=== PATIENT | female | born 1990 | race African-American/Black ===

== ENCOUNTER 2017-04-17 12:18 | Inpatient (IN) | payer SELFPAY ==
[~2017-04-17] VITALS: Ht 160 cm; Wt 98.4 kg
[2017-04-17 13:27] LABS: Basophils # (auto) 0.1 uL; Basophils % (auto) 0.9 % (0.0-2.0); Eosinophils # (auto) 0.4 uL; Eosinophils % (auto) 3.6 % (0.0-7.0); Hematocrit 40.3 % (36.0-46.0); Hemoglobin 13.3 g/dL (12.2-16.2); Lymphocytes # (auto) 2.7 uL; Lymphocytes % (auto) 27.2 % (10.0-50.0); Mean Corpuscular Hemoglobin 29.7 pg (28.0-32.0); Monocytes # (auto) 0.6 uL; Monocytes % (auto) 6.4 % (0.0-12.0); Neutrophils # (auto) 6.1 uL; Neutrophils % (auto) 61.9 % (37.0-80.0); Nucleated Red Blood Cells % 0.8 %; Platelet Count (auto) 327 10^3/uL (140-450); Red Blood Cells 4.48 10^6/uL (4.0-5.20); Red Cell Distribution Width 17.4 % (11.8-14.3); White Blood Cell 9.9 10^3/uL (4.4-10.8)
[2017-04-17 13:53] LABS: Albumin 3.8 g/dL (3.4-5.0); BUN/Creatinine Ratio 11.3; Bilirubin, Total 0.5 mg/dL (0.2-1.0); Calcium 9.4 mg/dL (8.5-10.1); Total Protein 8.5 g/dL (6.4-8.2)
[2017-04-17 13:57] LABS: Potassium 2.8 mmol/L (3.5-5.1)
[2017-04-17 15:08] LABS: Magnesium 2.2 mg/dL (1.6-2.6)
[2017-04-17] MEDS ORDERED: SODIUM CHLORIDE 0.9% 1,000 ML IVB ONE (15:19)
[2017-04-17] MEDS ORDERED: cloNIDine HCL 0.1 MG TAB PO ONE (15:30)
[2017-04-17] MEDS ORDERED: POTASSIUM CHL 20 Meq TABLET PO ONE (15:30)
[2017-04-17] MEDS ORDERED: ONDANSETRON HCL 4 MG/2 ML VIAL IV ONE (16:00)
[2017-04-17] MEDS ORDERED: MORPHINE SULFATE 10 MG/ML INJ 1ML SDV IV ONE (16:00)
[2017-04-17] MEDS ORDERED: METOPROLOL TARTRATE 50 MG TAB PO ONE (16:45)
[2017-04-17] MEDS ORDERED: HCTZ 25 MG TAB PO ONE (16:45)
[2017-04-17] MEDS ORDERED: MORPHINE SULFATE 10 MG/ML INJ 1ML SDV IV PRN (16:45)
[2017-04-17] MEDS ORDERED: ALPRAZolam 0.25 MG TAB PO PRN (16:45)
[2017-04-17] MEDS ORDERED: cloNIDine HCL 0.1 MG TAB PO PRN (16:45)
[2017-04-17] MEDS ORDERED: ASPirin 81 mg TAB PO ONE (16:45)
[2017-04-17] MEDS ORDERED: HYDROcodone-ACET 5/325MG TAB PO ONE (23:15)
[2017-04-17] MEDS: cloNIDine HCL 0.1 MG TAB PO SCH (23:32)
[2017-04-17] MEDS: METOPROLOL TARTRATE 50 MG TAB PO SCH (23:33)
[2017-04-18] VITALS (7 sets, daily range): BP systolic 108–145; BP diastolic 72–90
[2017-04-18] MEDS: METOPROLOL TARTRATE 50 MG TAB PO SCH ×3 (01:30→22:23)
[2017-04-18 07:29] LABS: Cholesterol 178 mg/dL (< 200); HDL Cholesterol 29 mg/dL (40-59); LDL Cholesterol 136 mg/dL (< 100); Triglycerides 95 mg/dL (< 150)
[2017-04-18 07:43] LABS: BUN/Creatinine Ratio 14.3; Calcium 8.4 mg/dL (8.5-10.1); Potassium 3.7 mmol/L (3.5-5.1)
[2017-04-18] MEDS: cloNIDine HCL 0.1 MG TAB PO SCH ×2 (10:00→22:22)
[2017-04-18] MEDS ORDERED: HCTZ 25 MG TAB PO SCH (10:00)
[2017-04-18] MEDS: ASPirin 81 mg TAB PO SCH (10:56)
[2017-04-18] MEDS ORDERED: traMADol HCL 50 MG TAB PO PRN (11:45)
[2017-04-18] MEDS ORDERED: KETOROLAC TROMETH 30 MG/ML 1ML VIAL IV ONE (11:45)
[2017-04-18 16:34] LABS: Urine Bacteria FEW /hpf (None Seen); Urine Blood TRACE /uL (Negative); Urine Specific Gravity 1.014 (1.001-1.035); Urine WBC 1 /hpf (0 - 5)
[2017-04-18] MEDS ORDERED: IOHEXOL 350 MG/ML 100ML IJ ONE (16:48)
[2017-04-18 16:49] LABS: Alcohol, Urine < 3.0 mg/dL (0-5); Amphetamine Screen, Urine NEGATIVE (NEGATIVE); Barbiturate Scree,Urine NEGATIVE (NEGATIVE); Benzodiazephine Screen, Urine NEGATIVE (NEGATIVE); Cannabinoid Screen, Urine POSITIVE (NEGATIVE); Cocaine Screen, Urine NEGATIVE (NEGATIVE); Opiate Scree,Urine NEGATIVE (NEGATIVE); Phencyclidine Screen, Urine NEGATIVE (NEGATIVE)
[2017-04-18] MEDS: NITROGLYCERIN 0.4 MG SL TAB SL PRN ×3 (17:00→17:15)
[2017-04-18] MEDS ORDERED: HYDROmorphone HCL 2 MG/ML VL IV PRN (17:30)
[2017-04-18] MEDS ORDERED: ONDANSETRON HCL 4 MG/2 ML VIAL IV PRN (19:45)
[2017-04-19 05:26] VITALS: BP 131/89
[2017-04-19 07:01] LABS: Calcium 9.1 mg/dL (8.5-10.1); Potassium 3.7 mmol/L (3.5-5.1)
[2017-04-19 09:00] VITALS: BP 135/89
[2017-04-19] MEDS ORDERED: TRIAMTERENE/HCTZ 75/50MG TABLET PO SCH (10:00)
[2017-04-19] MEDS: METOPROLOL TARTRATE 50 MG TAB PO SCH (10:14)
[2017-04-19] MEDS: cloNIDine HCL 0.1 MG TAB PO SCH (10:16)
[2017-04-19] MEDS: ASPirin 81 mg TAB PO SCH (10:16)
[2017-04-19 13:00] VITALS: BP 99/49
== END 2017-04-19 17:15 | disposition home or self-care (01) | DRG 305 ==
LOC: ER 12:18 → TELE 12:19 → TELE-WESTW 04-18 02:10
PROVIDERS: ADMIT Internal Medicine; ATTEND Internal Medicine
DX: I10 Essential (primary) hypertension (principal); L40.50 Arthropathic psoriasis, unspecified; G44.209 Tension-type headache, unspecified, not intractable; E66.9 Obesity, unspecified; E87.6 Hypokalemia; F17.210 Nicotine dependence, cigarettes, uncomplicated; F12.90 Cannabis use, unspecified, uncomplicated; Z68.38 Body mass index [BMI] 38.0-38.9, adult; Z79.899 Other long term (current) drug therapy
CPT/HCPCS: 36415; 70450; 71020; 80048; 80053; 80061; 80307; 81001; 81025; 82088; 82962; 83735; 84244; 84443; 84484; 85025; 93005; 93306; 94761; 96361; 96374; 96375; 96376; J1885; J2405

== ENCOUNTER 2018-07-09 09:59 | Emergency (ER) | payer SELFPAY ==
[~2018-07-09] VITALS: Ht 154.9 cm; Wt 94.8 kg
[2018-07-09 10:09] VITALS: BP 161/101
[2018-07-09 10:37] LABS: Urine Bacteria NONE SEEN /hpf (None Seen); Urine Blood 2+ /uL (Negative); Urine Budding Yeast OCCASIONAL /hpf (None Seen); Urine Hyaline Cast FEW /lpf (0 - 2); Urine Specific Gravity 1.036 (1.001-1.035); Urine WBC 1 /hpf (0 - 5)
[2018-07-09 12:15] LABS: Basophils # (auto) 0.1 uL; Basophils % (auto) 1.1 % (0.0-2.0); Eosinophils # (auto) 0.4 uL; Eosinophils % (auto) 5.3 % (0.0-7.0); Hematocrit 39.9 % (36.0-46.0); Hemoglobin 13.1 g/dL (12.2-16.2); Lymphocytes # (auto) 1.5 uL; Lymphocytes % (auto) 20.2 % (10.0-50.0); Mean Corpuscular Hemoglobin 29.7 pg (28.0-32.0); Mean Corpuscular Hgb Conc. 32.8 g/dL (32.0-36.0); Mean Corpuscular Volume 90.8 fL (80.0-100.0); Monocytes # (auto) 0.5 uL; Monocytes % (auto) 6.9 % (0.0-12.0); Neutrophils # (auto) 4.8 uL; Neutrophils % (auto) 66.5 % (37.0-80.0); Nucleated Red Blood Cells % 0.3 %; Platelet Count (auto) 270 10^3/uL (140-450); Red Cell Distribution Width 15.2 % (11.8-14.3); White Blood Cell 7.2 10^3/uL (4.4-10.8)
[2018-07-09 12:21] LABS: INR 0.92 (0.9-1.15); Partial Thromboplastin Time 27.2 sec (23.78-33.04); Prothrombin Time 9.9 sec (9.27-12.13)
[2018-07-09 12:38] LABS: Albumin 3.8 g/dL (3.4-5.0); BUN/Creatinine Ratio 8.4; Calcium 8.6 mg/dL (8.5-10.1); Potassium 3.5 mmol/L (3.5-5.1)
[2018-07-09 13:54] LABS: Bilirubin, Total 0.2 mg/dL (0.2-1.0); Total Protein 7.7 g/dL (6.4-8.2)
[2018-07-09] MEDS ORDERED: SODIUM CHLORIDE 0.9% 1,000 ML IV ONE (15:45)
== END 2018-07-09 16:39 | disposition left against medical advice (07) ==
LOC: ER 09:59
DX: N92.0 Excessive and frequent menstruation with regular cycle (principal); E11.9 Type 2 diabetes mellitus without complications; E87.1 Hypo-osmolality and hyponatremia; F17.210 Nicotine dependence, cigarettes, uncomplicated; F12.10 Cannabis abuse, uncomplicated; Z53.29 Procedure and treatment not carried out because of patient's decision for other reasons
CPT/HCPCS: 36415; 76830; 76856; 80053; 81001; 81025; 82962; 84702; 85025; 85610; 85730

== ENCOUNTER 2021-01-20 21:09 | Emergency (ER) | payer MEDICAID, OTHER ==
[~2021-01-20] VITALS: Ht 154.9 cm; Wt 54.4 kg
[2021-01-20 22:51] LABS: Basophils # (auto) 0 10 ^3/uL (0-0.2); Eosinophils # (auto) 0 10 ^3/uL (0-0.8); Eosinophils % (auto) 0.4 % (0.0-7.0); Hemoglobin 12.4 g/dL (12.2-16.2); Lymphocytes # (auto) 1.6 10 ^3/uL (0.4-5.4); Lymphocytes % (auto) 37.9 % (10.0-50.0); Mean Corpuscular Hemoglobin 27.3 pg (28.0-32.0); Mean Corpuscular Hgb Conc. 32.6 g/dL (32.0-36.0); Mean Corpuscular Volume 83.6 fL (80.0-100.0); Monocytes # (auto) 0.4 10 ^3/uL (0-1.3); Monocytes % (auto) 8.8 % (0.0-12.0); Neutrophils # (auto) 2.1 10 ^3/uL (1.6-8.6); Neutrophils % (auto) 51.9 % (37.0-80.0); Nucleated Red Blood Cells % 0.1 %; Red Blood Cells 4.54 10^6/uL (4.0-5.20); Red Cell Distribution Width 18.4 % (11.8-14.3); White Blood Cell 4.1 10^3/uL (4.4-10.8)
[2021-01-20 23:09] LABS: Albumin 3.3 g/dL (3.4-5.0); BUN/Creatinine Ratio 8.7; Calcium 8.9 mg/dL (8.5-10.1); Magnesium 1.9 mg/dL (1.6-2.6); Potassium 3.1 mmol/L (3.5-5.1)
[2021-01-20 23:12] LABS: Bilirubin, Total 0.2 mg/dL (0.2-1.0); Total Protein 8.2 g/dL (6.4-8.2)
[2021-01-21 04:04] LABS: Urine Bacteria NONE SEEN /hpf (None Seen); Urine Blood Negative /uL (Negative); Urine Hyaline Cast MOD /lpf (0 - 2); Urine Mucus FEW (None Seen); Urine Specific Gravity 1.029 (1.001-1.035); Urine WBC 7 /hpf (0 - 5)
[2021-01-21] MEDS ORDERED: cefTRIAXone SOD 1,000 MG VL IM ONE (05:00)
[2021-01-21] MEDS ORDERED: POTASSIUM CHL 20 Meq TABLET PO ONE (05:00)
[2021-01-21 05:07] VITALS: BP 143/97
[2021-01-21] MEDS ORDERED: methylPREDNISolone SOD SUCC 125 MG/2 ML VL IM ONE (05:30)
== END 2021-01-21 07:39 | disposition home or self-care (01) ==
LOC: ER 21:09
DX: J06.9 Acute upper respiratory infection, unspecified (principal); N39.0 Urinary tract infection, site not specified; E86.0 Dehydration; I10 Essential (primary) hypertension; F17.210 Nicotine dependence, cigarettes, uncomplicated; Z20.822 Contact with and (suspected) exposure to COVID-19
CPT/HCPCS: 36415; 71045; 80053; 81001; 83690; 83735; 85025; 87426; 96372; 99284; C9803; J0696; J2930; U0003

== ENCOUNTER 2023-10-12 03:39 | Inpatient (IN) | payer MEDICAID ==
[2023-10-12] VITALS (20 sets, daily range): BP systolic 127–164; BP diastolic 78–104; PULSE 75–98; RESP 10–33; TEMP 97.8–98.7; O2SAT 93–100
[~2023-10-12] VITALS: Ht 30.5 cm; Wt 0.5 kg
[2023-10-12] MEDS ORDERED: MORPHINE SULFATE 4 MG/ML SYR/VIAL IV PRN (09:15)
[2023-10-12] MEDS ORDERED: NITROGLYCERIN 0.4 MG SL TAB SL PRN (09:15)
[2023-10-12] MEDS: ASPirin 81 mg TAB PO SCH (10:00)
[2023-10-12 10:24] LABS: Basophils # (auto) 0.1 10 ^3/uL (0-0.2); Basophils % (auto) 1.5 % (0.0-2.0); Eosinophils # (auto) 0.1 10 ^3/uL (0-0.8); Eosinophils % (auto) 1.3 % (0.0-7.0); Hematocrit 34.1 % (36.0-46.0); Hemoglobin 10.7 g/dL (12.2-16.2); Lymphocytes # (auto) 2.7 10 ^3/uL (0.4-5.4); Lymphocytes % (auto) 28.3 % (10.0-50.0); Mean Corpuscular Hemoglobin 25.8 pg (28.0-32.0); Mean Corpuscular Hgb Conc. 31.5 g/dL (32.0-36.0); Mean Corpuscular Volume 81.9 fL (80.0-100.0); Monocytes # (auto) 0.4 10 ^3/uL (0-1.3); Monocytes % (auto) 4.4 % (0.0-12.0); Neutrophils # (auto) 6.2 10 ^3/uL (1.6-8.6); Neutrophils % (auto) 64.5 % (37.0-80.0); Nucleated Red Blood Cells % 0.1 %; Red Blood Cells 4.16 10^6/uL (4.0-5.20); Red Cell Distribution Width 19.5 % (11.8-14.3); White Blood Cell 9.5 10^3/uL (4.4-10.8)
[2023-10-12 10:37] LABS: Chloride 106 mmol/L (98-107); Potassium 3.5 mmol/L (3.5-5.1); Sodium 137 mmol/L (136-145)
[2023-10-12 10:38] LABS: Anion Gap 7 (5-15); Carbon Dioxide 24 mmol/L (20-30)
[2023-10-12 10:39] LABS: Calcium 9.5 mg/dL (8.5-10.1); INR 1.06 (0.9-1.15); Prothrombin Time 11.2 sec (9.3-11.8)
[2023-10-12 10:44] LABS: Blood Urea Nitrogen 12 mg/dL (9-23); Glucose 174 mg/dL (74-106)
[2023-10-12] MEDS: LISINOPRIL 20 MG TAB PO SCH (11:43)
[2023-10-12] MEDS: ANGIOMAX 250 MG VIAL IV ONE (13:04)
[2023-10-12] MEDS: VERAPAMIL 2.5MG/ML INJ 2ML VIAL IV ONE (13:04)
[2023-10-12] MEDS: HEPARIN SODIUM (PORCINE) 5000 UNITS/ML 1ML VIAL ONE (13:04)
[2023-10-12] MEDS: fentaNYL CITRATE 100 MCG/2 ML VL ONE (13:04)
[2023-10-12] MEDS: MIDAZOLAM HCL 2MG/2ML 2ml VIAL (1mg/ml) ONE (13:05)
[2023-10-12] MEDS: SODIUM CHL 0.9% 0 ML ONE (13:05)
[2023-10-12] MEDS: LIDOCAINE 2%HCL (LOCAL ANESTH.) INJ 20ML MDV ONE (13:05)
[2023-10-12] MEDS: IODIXANOL 320MG/ML 100ML BTL IV ONE ×2 (13:05→13:23)
[2023-10-12] MEDS: LABETALOL HCL 200 MG TAB PO SCH (15:35)
[2023-10-12] MEDS: ALBUTEROL SULF 2.5 MG/0.5ML(0.5%) NEB SOLN NEB SCH (18:41)
[2023-10-12] MEDS: SACUBITRIL-VALSARTAN 24mg/26mg TAB PO SCH (20:59)
[2023-10-12] MEDS: MELATONIN 5 MG TAB PO PRN (23:39)
[2023-10-12] MEDS: hydrALAZINE HCL 20 MG/ML VL IV PRN (23:44)
[2023-10-12] MEDS: ACETAMINOPHEN 325 MG TAB PO PRN (23:45)
[2023-10-13] VITALS (9 sets, daily range): BP systolic 112–161; BP diastolic 64–92; PULSE 75–90; RESP 16–20; TEMP 98.1–98.7; O2SAT 96–100
[2023-10-13] MEDS: amLODIPine BESYLATE 5 MG TAB PO SCH (09:18)
[2023-10-13 11:07] LABS: Basophils # (auto) 0.1 10 ^3/uL (0-0.2); Eosinophils # (auto) 0.2 10 ^3/uL (0-0.8); Eosinophils % (auto) 3.5 % (0.0-7.0); Hemoglobin 9.4 g/dL (12.2-16.2); Monocytes # (auto) 0.4 10 ^3/uL (0-1.3); Neutrophils # (auto) 4.3 10 ^3/uL (1.6-8.6)
[2023-10-13 11:11] LABS: Basophils % (auto) 1.2 % (0.0-2.0); Hematocrit 30.1 % (36.0-46.0); Lymphocytes # (auto) 1.5 10 ^3/uL (0.4-5.4); Lymphocytes % (auto) 22.5 % (10.0-50.0); Mean Corpuscular Hemoglobin 25.9 pg (28.0-32.0); Mean Corpuscular Hgb Conc. 31.2 g/dL (32.0-36.0); Mean Corpuscular Volume 82.8 fL (80.0-100.0); Monocytes % (auto) 6.8 % (0.0-12.0); Red Blood Cells 3.63 10^6/uL (4.0-5.20); White Blood Cell 6.6 10^3/uL (4.4-10.8)
[2023-10-13 11:33] LABS: Calcium 9.3 mg/dL (8.5-10.1); Chloride 106 mmol/L (98-107); Potassium 3.5 mmol/L (3.5-5.1); Sodium 136 mmol/L (136-145)
[2023-10-13 11:34] LABS: Anion Gap 8 (5-15); Carbon Dioxide 22 mmol/L (20-30)
[2023-10-13 11:39] LABS: BUN/Creatinine Ratio 8.2 (10.0-20.0); Blood Urea Nitrogen 10 mg/dL (9-23); Glucose 256 mg/dL (74-106)
[2023-10-13] MEDS ORDERED: ATOR-507 PO (14:31)
[2023-10-13] MEDS ORDERED: LABE200T10 PO (14:31)
[2023-10-13] MEDS ORDERED: SACU1TAB PO (14:31)
[2023-10-13] MEDS ORDERED: AML5T PO (14:31)
[2023-10-13] MEDS ORDERED: ASPI-325 PO (14:31)
== END 2023-10-13 17:30 | disposition home or self-care (01) | DRG 190 ==
LOC: DOU IN ICU 07:30 → TELE-WESTW 22:10
PROVIDERS: ADMIT Nurse Practitioner Family; ATTEND Nurse Practitioner Family
PROC: 4A023N7 Measurement of Cardiac Sampling and Pressure, Left Heart, Percutaneous Approach (ICD-10-PCS; principal; 2023-10-12)
PROC: B211YZZ Fluoroscopy of Multiple Coronary Arteries using Other Contrast (ICD-10-PCS; 2023-10-12)
DX: I21.4 Non-ST elevation (NSTEMI) myocardial infarction (principal); I11.0 Hypertensive heart disease with heart failure; I50.9 Heart failure, unspecified; E66.9 Obesity, unspecified; I25.10 Atherosclerotic heart disease of native coronary artery without angina pectoris; I34.0 Nonrheumatic mitral (valve) insufficiency; Z82.49 Family history of ischemic heart disease and other diseases of the circulatory system; Z79.4 Long term (current) use of insulin; Z68.1 Body mass index [BMI] 19.9 or less, adult
CPT/HCPCS: 36415; 80048; 84484; 84702; 85025; 85610; 86850; 86900; 86901; 87081; 93005; 93306; 93458; 94640; 99152; G0378; J2250; Q9967

== ENCOUNTER 2024-02-21 13:45 | Inpatient (IN) | payer MEDICAID ==
[~2024-02-21] VITALS: Ht 157.5 cm; Wt 88.8 kg
[~2024-02-21 13:45] MED LIST: AML5T PO; ASPI-325 PO; ATOR-507 PO; LABE200T10 PO; SACU1TAB PO
[2024-02-21 14:35] LABS: Basophils # (auto) 0.1 10 ^3/uL (0-0.2); Eosinophils # (auto) 0.3 10 ^3/uL (0-0.8); Hemoglobin 10.7 g/dL (12.2-16.2); Monocytes # (auto) 0.6 10 ^3/uL (0-1.3); Nucleated Red Blood Cells % 0.1 %; Red Cell Distribution Width 16.7 % (11.8-14.3)
[2024-02-21 14:37] LABS: Eosinophils % (auto) 3.3 % (0.0-7.0); Hematocrit 33.2 % (36.0-46.0); Lymphocytes # (auto) 1.9 10 ^3/uL (0.4-5.4); Lymphocytes % (auto) 19.7 % (10.0-50.0); Mean Corpuscular Hemoglobin 25.7 pg (28.0-32.0); Mean Corpuscular Hgb Conc. 32.3 g/dL (32.0-36.0); Mean Corpuscular Volume 79.4 fL (80.0-100.0); Neutrophils # (auto) 6.8 10 ^3/uL (1.6-8.6); Platelet Count (auto) 358 10^3/uL (140-450); Red Blood Cells 4.18 10^6/uL (4.0-5.20); White Blood Cell 9.8 10^3/uL (4.4-10.8)
[2024-02-21 14:50] LABS: Alanine Aminotransferase 14 U/L (7-40); Albumin 4.6 g/dL (3.2-4.8); Alkaline Phosphatase 77 U/L (46-116); Anion Gap 11 (5-15); Aspartate Aminotransferase 11 U/L (13-40); BUN/Creatinine Ratio 7.2 (10.0-20.0); Blood Urea Nitrogen 10 mg/dL (9-23); Calcium 9.9 mg/dL (8.7-10.4); Carbon Dioxide 25 mmol/L (20-30); Chloride 99 mmol/L (98-107); Glucose 321 mg/dL (74-106); Magnesium 1.5 mg/dL (1.6-2.6); Potassium 3.3 mmol/L (3.5-5.1); Sodium 135 mmol/L (136-145)
[2024-02-21 14:51] LABS: Bilirubin, Total 0.4 mg/dL (0.2-1.0); Total Protein 7.7 g/dL (5.7-8.2)
[2024-02-21] MEDS: hydrALAZINE HCL 10 MG TAB PO ONE (14:53)
[2024-02-21 15:13] LABS: INR 0.99 (0.9-1.15); Partial Thromboplastin Time 27.1 SEC (24.5-34.5); Prothrombin Time 10.5 sec (9.3-11.8)
[2024-02-21] MEDS: NITROGLYCERIN 2% OINT 1GM PKG TD ONE (16:45)
[2024-02-21] MEDS: LABETALOL HCL 20 MG/4 ML VL IV ONE ×2 (17:00→22:18)
[2024-02-21] MEDS: ASPirin 325 MG TAB PO ONE (17:15)
[2024-02-21] MEDS: HYDROcodone-ACET 5/325MG TAB PO ONE (17:44)
[2024-02-21 18:44] LABS: Cellular Cast FEW /hpf (0); Urine Bacteria FEW /hpf (None Seen); Urine Blood 1+ /uL (Negative); Urine Clarity Turbid (Clear); Urine Color Yellow (Yellow); Urine Hyaline Cast MOD /lpf (0 - 2); Urine Mucus FEW (None Seen); Urine Protein, UAD 2+ (Negative); Urine Specific Gravity 1.029 (1.001-1.035); Urine Urobilinogen Normal (Negative); Urine WBC <1 /hpf (0 - 5)
[2024-02-21 18:45] LABS: Amphetamine Screen, Urine Neg (NEGATIVE); Barbiturate Scree,Urine Neg (NEGATIVE); Benzodiazephine Screen, Urine Neg (NEGATIVE); Cannabinoid Screen, Urine Pos (NEGATIVE); Cocaine Screen, Urine Neg (NEGATIVE); Opiate Scree,Urine Neg (NEGATIVE); Phencyclidine Screen, Urine Neg (NEGATIVE)
[2024-02-21] MEDS: amLODIPine BESYLATE 5 MG TAB PO ONE (22:21)
[2024-02-21] MEDS ORDERED: NITROGLYCERIN 0.4 MG SL TAB SL PRN (22:45)
[2024-02-21] MEDS: SODIUM CHLORIDE 0.9% 1,000 ML IV SCH (22:51)
[2024-02-21] MEDS: POTASSIUM CHL 20 Meq TABLET PO ONE (22:51)
[2024-02-21] MEDS: ACETAMINOPHEN 325 MG TAB PO PRN (23:25)
[2024-02-21] MEDS: cloNIDine HCL 0.1 MG TAB PO PRN (23:47)
[2024-02-22] VITALS (9 sets, daily range): BP systolic 122–155; BP diastolic 79–101; PULSE 80–108; RESP 17–18; TEMP 98.3–99.3; O2SAT 96–99
[2024-02-22] MEDS: hydrALAZINE HCL 20 MG/ML VL IV PRN (00:14)
[2024-02-22] MEDS: MORPHINE SULFATE INJ 2 MG/ml SYRG IV PRN ×2 (00:19→02:16)
[2024-02-22] MEDS ORDERED: DEXTROSE (50%) 50ML SYRG IV PRN (01:30)
[2024-02-22] MEDS: ACCU-CHEK COMFORT CURVE STRIP VI SCH (05:00)
[2024-02-22] MEDS: InsuLIN REG 1unit/0.01ml Soln (100units/ml) SC SCH (05:02)
[2024-02-22] MEDS: MAGNESIUM SULFATE 1GM/100ML 100 ML IV ONE ×2 (09:01→12:26)
[2024-02-22] MEDS: METOPROLOL TARTRATE 50 MG TAB PO SCH (09:02)
[2024-02-22] MEDS: amLODIPine BESYLATE 5 MG TAB PO SCH (09:02)
[2024-02-22] MEDS: ASPirin 81 mg TAB PO SCH (09:03)
[2024-02-22 10:01] LABS: Basophils # (auto) 0.1 10 ^3/uL (0-0.2); Basophils % (auto) 0.9 % (0.0-2.0); Eosinophils # (auto) 0.3 10 ^3/uL (0-0.8); Eosinophils % (auto) 2.8 % (0.0-7.0); Hematocrit 28.1 % (36.0-46.0); Hemoglobin 9.1 g/dL (12.2-16.2); Lymphocytes # (auto) 1.3 10 ^3/uL (0.4-5.4); Lymphocytes % (auto) 12.7 % (10.0-50.0); Mean Corpuscular Hemoglobin 25.8 pg (28.0-32.0); Mean Corpuscular Hgb Conc. 32.5 g/dL (32.0-36.0); Mean Corpuscular Volume 79.5 fL (80.0-100.0); Monocytes % (auto) 9.5 % (0.0-12.0); Neutrophils # (auto) 7.8 10 ^3/uL (1.6-8.6); Neutrophils % (auto) 74.1 % (37.0-80.0); Platelet Count (auto) 288 10^3/uL (140-450); Red Blood Cells 3.53 10^6/uL (4.0-5.20); Red Cell Distribution Width 17.1 % (11.8-14.3); White Blood Cell 10.5 10^3/uL (4.4-10.8)
[2024-02-22 10:10] LABS: Alanine Aminotransferase 16 U/L (7-40); Alkaline Phosphatase 60 U/L (46-116); Anion Gap 8 (5-15); Aspartate Aminotransferase < 8 U/L (13-40); BUN/Creatinine Ratio 10.3 (10.0-20.0); Bilirubin, Total 0.3 mg/dL (0.2-1.0); Blood Urea Nitrogen 12 mg/dL (9-23); Calcium 9.1 mg/dL (8.7-10.4); Carbon Dioxide 25 mmol/L (20-30); Chloride 103 mmol/L (98-107); Glucose 272 mg/dL (74-106); Magnesium 1.7 mg/dL (1.6-2.6); Potassium 2.8 mmol/L (3.5-5.1); Sodium 136 mmol/L (136-145); Total Protein 6.7 g/dL (5.7-8.2)
[2024-02-22] MEDS ORDERED: METOPROLOL SUCCINATE XL 50 MG TAB PO ONE (10:45)
[2024-02-22] MEDS: ATORVASTATIN 20 MG TAB PO SCH (12:26)
[2024-02-22] MEDS: LISINOPRIL 20 MG TAB PO ONE (12:26)
[2024-02-22] MEDS: POTASSIUM CHL 20 Meq TABLET PO ONE (12:31)
[2024-02-22] MEDS: INSULIN LANTUS (GLARGINE) 1 /0.01ml (100units/ml) SC SCH (21:44)
[2024-02-22] MEDS ORDERED: ATORVASTATIN 20 MG TAB PO SCH (22:00)
[2024-02-23] VITALS (8 sets, daily range): BP systolic 115–156; BP diastolic 63–98; PULSE 84–106; RESP 17–18; TEMP 97.8–99.1; O2SAT 92–98
[2024-02-23] MEDS: ONDANSETRON HCL 4 MG/2 ML VIAL IV PRN (00:51)
[2024-02-23] MEDS: INSULIN LANTUS (GLARGINE) 1 /0.01ml (100units/ml) SC SCH (09:00)
[2024-02-23 10:12] LABS: Basophils # (auto) 0.1 10 ^3/uL (0-0.2); Hemoglobin 8.9 g/dL (12.2-16.2); Lymphocytes # (auto) 2.8 10 ^3/uL (0.4-5.4); Lymphocytes % (auto) 35.3 % (10.0-50.0); Nucleated Red Blood Cells % 0.1 %
[2024-02-23 10:14] LABS: Eosinophils # (auto) 0.2 10 ^3/uL (0-0.8); Eosinophils % (auto) 2.9 % (0.0-7.0); Hematocrit 28.5 % (36.0-46.0); Mean Corpuscular Hgb Conc. 31.1 g/dL (32.0-36.0); Mean Corpuscular Volume 80.5 fL (80.0-100.0); Monocytes # (auto) 0.5 10 ^3/uL (0-1.3); Monocytes % (auto) 6.1 % (0.0-12.0); Neutrophils # (auto) 4.3 10 ^3/uL (1.6-8.6); Neutrophils % (auto) 54.7 % (37.0-80.0); Platelet Count (auto) 310 10^3/uL (140-450); Red Blood Cells 3.54 10^6/uL (4.0-5.20); Red Cell Distribution Width 16.9 % (11.8-14.3); White Blood Cell 7.9 10^3/uL (4.4-10.8)
[2024-02-23 10:18] LABS: Chloride 104 mmol/L (98-107); Potassium 3.4 mmol/L (3.5-5.1); Sodium 136 mmol/L (136-145)
[2024-02-23 10:19] LABS: Anion Gap 12 (5-15); Calcium 9.2 mg/dL (8.7-10.4); Carbon Dioxide 20 mmol/L (20-30)
[2024-02-23 10:24] LABS: BUN/Creatinine Ratio 10.1 (10.0-20.0); Blood Urea Nitrogen 14 mg/dL (9-23); Glucose 263 mg/dL (74-106)
[2024-02-23] MEDS: LISINOPRIL 20 MG TAB PO SCH (10:45)
[2024-02-23] MEDS: EMPAGLIFLOZIN 10 MG TAB PO SCH (10:46)
[2024-02-23] MEDS: METOPROLOL SUCCINATE XL 50 MG TAB PO SCH (10:47)
[2024-02-23] MEDS: POTASSIUM CHL 20 Meq TABLET PO ONE (10:51)
[2024-02-23] MEDS: HYDROcodone-ACET 5/325MG TAB PO PRN (18:46)
[2024-02-24] MEDS: DOCUSATE SOD 100 MG CAP PO PRN (00:31)
[2024-02-24 01:00] VITALS: BP 157/84; PULSE 102; RESP 19; TEMP 98.3; O2SAT 99
[2024-02-24 05:00] VITALS: BP 162/90; PULSE 101; RESP 18; TEMP 98.3; O2SAT 98
[2024-02-24 08:00] VITALS: PULSE 94
[2024-02-24 08:10] VITALS: BP 134/84; PULSE 94; RESP 19; TEMP 98; O2SAT 96
[2024-02-24 11:31] LABS: Basophils # (auto) 0.1 10 ^3/uL (0-0.2); Basophils % (auto) 0.7 % (0.0-2.0); Eosinophils # (auto) 0.2 10 ^3/uL (0-0.8); Eosinophils % (auto) 1.6 % (0.0-7.0); Hemoglobin 9.4 g/dL (12.2-16.2); Lymphocytes # (auto) 2.6 10 ^3/uL (0.4-5.4); Lymphocytes % (auto) 24.7 % (10.0-50.0); Mean Corpuscular Hgb Conc. 32.5 g/dL (32.0-36.0); Monocytes # (auto) 0.7 10 ^3/uL (0-1.3); Neutrophils # (auto) 6.8 10 ^3/uL (1.6-8.6); Nucleated Red Blood Cells % 0.1 %; Platelet Count (auto) 317 10^3/uL (140-450); Red Blood Cells 3.63 10^6/uL (4.0-5.20); Red Cell Distribution Width 17.2 % (11.8-14.3); White Blood Cell 10.4 10^3/uL (4.4-10.8)
[2024-02-24 11:49] LABS: Alanine Aminotransferase 10 U/L (7-40); Alkaline Phosphatase 55 U/L (46-116); Anion Gap 12 (5-15); Aspartate Aminotransferase 9 U/L (13-40); BUN/Creatinine Ratio 12.9 (10.0-20.0); Blood Urea Nitrogen 17 mg/dL (9-23); Calcium 9.4 mg/dL (8.7-10.4); Carbon Dioxide 20 mmol/L (20-30); Chloride 105 mmol/L (98-107); Glucose 175 mg/dL (74-106); Magnesium 1.9 mg/dL (1.6-2.6); Potassium 3.6 mmol/L (3.5-5.1); Sodium 137 mmol/L (136-145)
[2024-02-24 11:50] LABS: Bilirubin, Total 0.2 mg/dL (0.2-1.0); Total Protein 6.9 g/dL (5.7-8.2)
[2024-02-24] MEDS: MAGNESIUM SULFATE 1GM/100ML 100 ML IV ONE (13:01)
[2024-02-24 13:36] VITALS: BP 152/93; PULSE 86; RESP 17; TEMP 98; O2SAT 96
[2024-02-24] MEDS ORDERED: NIFE1TAB36 PO (14:36)
[2024-02-24] MEDS ORDERED: EMPA1TAB PO (14:36)
[2024-02-24] MEDS ORDERED: METO-6 PO (14:36)
[2024-02-24] MEDS ORDERED: ATOR20TA50 PO (14:36)
[2024-02-24] MEDS: ONDANSETRON ODT 4 MG TAB PO ONE (16:26)
[2024-02-24 17:14] VITALS: BP 146/68; PULSE 84
[2024-02-24] MEDS ORDERED: SACU1TAB PO (18:10)
== END 2024-02-24 18:00 | disposition home or self-care (01) | DRG 199 ==
LOC: EDBD 13:45 → ER 13:45 → EDUNIT# 13:45 → TELE 22:45 → TELE-WESTW 02-22 03:08
PROVIDERS: ADMIT Nurse Practitioner Family; ATTEND Internal Medicine
DX: I16.0 Hypertensive urgency (principal); N17.0 Acute kidney failure with tubular necrosis; I21.A1 Myocardial infarction type 2; I50.22 Chronic systolic (congestive) heart failure; I11.0 Hypertensive heart disease with heart failure; E11.9 Type 2 diabetes mellitus without complications; E87.6 Hypokalemia; E83.42 Hypomagnesemia; E78.5 Hyperlipidemia, unspecified; F17.210 Nicotine dependence, cigarettes, uncomplicated; Z86.73 Personal history of transient ischemic attack (TIA), and cerebral infarction without residual deficits; Z91.199 Patient's noncompliance with other medical treatment and regimen due to unspecified reason; Z79.899 Other long term (current) drug therapy; Z83.3 Family history of diabetes mellitus; Z79.4 Long term (current) use of insulin
CPT/HCPCS: 36415; 71045; 80048; 80053; 80307; 81001; 81025; 82088; 82962; 83036; 83735; 83880; 84244; 84484; 84702; 85025; 85610; 85730; 93976; 99291; G0378; J1815; J2405; Q0162

== ENCOUNTER 2024-03-13 04:05 | Inpatient (IN) | payer MEDICAID ==
[~2024-03-13] VITALS: Ht 167.6 cm; Wt 86.2 kg
[~2024-03-13 04:05] MED LIST changes: -AML5T PO; +ATOR20TA50 PO; +EMPA1TAB PO; -LABE200T10 PO; +METO-6 PO; +NIFE1TAB36 PO
[2024-03-13 04:42] LABS: Basophils # (auto) 0.1 10 ^3/uL (0-0.2); Basophils % (auto) 0.9 % (0.0-2.0); Eosinophils # (auto) 0.3 10 ^3/uL (0-0.8); Eosinophils % (auto) 2.7 % (0.0-7.0); Hematocrit 29.9 % (36.0-46.0); Hemoglobin 9.9 g/dL (12.2-16.2); Lymphocytes # (auto) 3.9 10 ^3/uL (0.4-5.4); Lymphocytes % (auto) 40.8 % (10.0-50.0); Mean Corpuscular Hemoglobin 26.2 pg (28.0-32.0); Mean Corpuscular Hgb Conc. 33.2 g/dL (32.0-36.0); Mean Corpuscular Volume 78.9 fL (80.0-100.0); Monocytes # (auto) 0.7 10 ^3/uL (0-1.3); Monocytes % (auto) 7.8 % (0.0-12.0); Neutrophils # (auto) 4.5 10 ^3/uL (1.6-8.6); Neutrophils % (auto) 47.8 % (37.0-80.0); Nucleated Red Blood Cells % 0.1 %; Platelet Count (auto) 414 10^3/uL (140-450); Red Blood Cells 3.79 10^6/uL (4.0-5.20); Red Cell Distribution Width 17.5 % (11.8-14.3); White Blood Cell 9.5 10^3/uL (4.4-10.8)
[2024-03-13 04:53] LABS: Alanine Aminotransferase 11 U/L (7-40); Albumin 4.5 g/dL (3.2-4.8); Alkaline Phosphatase 83 U/L (46-116); Anion Gap 9 (5-15); Aspartate Aminotransferase < 8 U/L (13-40); Blood Urea Nitrogen 8 mg/dL (9-23); Calcium 9.7 mg/dL (8.7-10.4); Carbon Dioxide 22 mmol/L (20-31); Chloride 107 mmol/L (98-107); Glucose 215 mg/dL (74-106); Potassium 3.5 mmol/L (3.5-5.1); Sodium 138 mmol/L (136-145)
[2024-03-13 04:54] LABS: Bilirubin, Total 0.2 mg/dL (0.2-1.0); Total Protein 7.4 g/dL (5.7-8.2)
[2024-03-13] MEDS ORDERED: DEXTROSE (50%) 50ML SYRG IV PRN (09:15)
[2024-03-13 09:22] VITALS: RESP 22; O2SAT 99
[2024-03-13] MEDS: NITROGLYCERIN 0.4 MG SL TAB SL PRN (09:56)
[2024-03-13 12:00] VITALS: PULSE 88; RESP 18; O2SAT 98
[2024-03-13] MEDS: ACCU-CHEK COMFORT CURVE STRIP VI SCH (12:48)
[2024-03-13] MEDS: METOPROLOL SUCCINATE XL 50 MG TAB PO SCH (12:49)
[2024-03-13] MEDS: NIFEdipine ER 30 MG TAB PO SCH (12:50)
[2024-03-13] MEDS: InsuLIN REG 1unit/0.01ml Soln (100units/ml) SC SCH ×2 (12:58→22:55)
[2024-03-13] MEDS: HYDROcodone-ACET 5/325MG TAB PO PRN (14:59)
[2024-03-13] MEDS: hydrALAZINE HCL 20 MG/ML VL IV PRN (17:59)
[2024-03-13 19:00] VITALS: RESP 16
[2024-03-13 19:15] VITALS: BP 144/82; PULSE 90; RESP 18; TEMP 97.8; O2SAT 92
[2024-03-13 20:00] VITALS: PULSE 84; RESP 18
[2024-03-13 21:00] VITALS: BP 140/74; PULSE 92; RESP 18; TEMP 97.8; O2SAT 95
[2024-03-13] MEDS ORDERED: ATORVASTATIN 20 MG TAB PO SCH (22:00)
[2024-03-13] MEDS: ATORVASTATIN 20 MG TAB PO SCH (22:51)
[2024-03-13] MEDS: SACUBITRIL-VALSARTAN 24mg/26mg TAB PO SCH (22:51)
[2024-03-14] VITALS (8 sets, daily range): BP systolic 130–141; BP diastolic 44–92; PULSE 86–99; RESP 18–20; TEMP 98–98.7; O2SAT 95–100
[2024-03-14 07:54] LABS: Basophils # (auto) 0.1 10 ^3/uL (0-0.2); Eosinophils # (auto) 0.2 10 ^3/uL (0-0.8); Lymphocytes # (auto) 3.5 10 ^3/uL (0.4-5.4); Monocytes # (auto) 0.6 10 ^3/uL (0-1.3)
[2024-03-14 07:57] LABS: Basophils % (auto) 1.1 % (0.0-2.0); Eosinophils % (auto) 2.8 % (0.0-7.0); Hematocrit 30.8 % (36.0-46.0); Hemoglobin 9.9 g/dL (12.2-16.2); Lymphocytes % (auto) 40.6 % (10.0-50.0); Mean Corpuscular Hemoglobin 25.4 pg (28.0-32.0); Mean Corpuscular Volume 79.2 fL (80.0-100.0); Monocytes % (auto) 6.4 % (0.0-12.0); Neutrophils # (auto) 4.3 10 ^3/uL (1.6-8.6); Neutrophils % (auto) 49.1 % (37.0-80.0); Platelet Count (auto) 407 10^3/uL (140-450); Red Blood Cells 3.89 10^6/uL (4.0-5.20); Red Cell Distribution Width 17.8 % (11.8-14.3); White Blood Cell 8.7 10^3/uL (4.4-10.8)
[2024-03-14 07:59] LABS: Carbon Dioxide 24 mmol/L (20-31); Potassium 3.4 mmol/L (3.5-5.1); Sodium 138 mmol/L (136-145)
[2024-03-14 08:00] LABS: Calcium 9.7 mg/dL (8.7-10.4)
[2024-03-14 08:05] LABS: Blood Urea Nitrogen 12 mg/dL (9-23); Glucose 173 mg/dL (74-106)
[2024-03-14 08:12] LABS: Anion Gap 8 (5-15); Chloride 106 mmol/L (98-107)
[2024-03-14] MEDS: EMPAGLIFLOZIN 10 MG TAB PO SCH (10:00)
[2024-03-14] MEDS: POTASSIUM EFFERVESENT TAB 25 MEQ GT ONE (10:00)
[2024-03-14] MEDS ORDERED: NIFEdipine ER 30 MG TAB PO SCH (10:00)
[2024-03-14] MEDS ORDERED: METOPROLOL SUCCINATE XL 50 MG TAB PO SCH (10:00)
[2024-03-14] MEDS: ASPirin-EC 81 mg tab PO SCH (10:01)
[2024-03-14 10:28] LABS: Urine Bacteria None Seen /hpf (None Seen)
[2024-03-14] MEDS: POTASSIUM EFFERVESENT TAB 25 MEQ PO ONE (10:29)
[2024-03-14 10:41] LABS: Urine Blood Negative /uL (Negative); Urine Clarity Clear (Clear); Urine Color Light-Yellow (Yellow); Urine Protein, UAD Negative (Negative); Urine Specific Gravity 1.019 (1.001-1.035); Urine Urobilinogen Normal (Negative); Urine WBC 1 /hpf (0 - 5); Urine pH 5.5 (5.0-9.0)
[2024-03-14] MEDS: SPIRONOLACTONE 25 MG TAB PO ONE (12:03)
[2024-03-14 13:11] LABS: Amphetamine Screen, Urine Neg (NEGATIVE)
[2024-03-14 13:12] LABS: Barbiturate Scree,Urine Neg (NEGATIVE); Benzodiazephine Screen, Urine Neg (NEGATIVE); Cocaine Screen, Urine Neg (NEGATIVE); Opiate Scree,Urine Pos (NEGATIVE)
[2024-03-14 13:13] LABS: Cannabinoid Screen, Urine Pos (NEGATIVE); Phencyclidine Screen, Urine Neg (NEGATIVE)
[2024-03-14 13:14] LABS: % Iron Saturation 7.9 % (15-50); Triglycerides 129 mg/dL (< 150)
[2024-03-14 13:15] LABS: LDL Cholesterol 77 mg/dL (< 100)
[2024-03-14 13:16] LABS: Cholesterol 133 mg/dL (< 200); HDL Cholesterol 38 mg/dL (40-59)
[2024-03-14 14:04] LABS: Thyroid Stimulating Hormone 0.67 uIU/mL (0.55-4.78)
[2024-03-14] MEDS: BUMETANIDE 2.5mg/10ml (0.25 mg/ml) INJ IV ONE (18:12)
[2024-03-14] MEDS: INSULIN LANTUS (GLARGINE) 1 /0.01ml (100units/ml) SC ONE (18:14)
[2024-03-14] MEDS: CARVEDILOL 3.125 MG TAB PO SCH (21:48)
[2024-03-14] MEDS: NIFEdipine ER 30 MG TAB PO SCH (21:51)
[2024-03-15] VITALS (8 sets, daily range): BP systolic 108–165; BP diastolic 70–93; PULSE 82–96; RESP 18–20; TEMP 97.6–98.6; O2SAT 96–100
[2024-03-15] MEDS: MORPHINE SULFATE INJ 2 MG/ml SYRG IV PRN (00:36)
[2024-03-15] MEDS: INSULIN LANTUS (GLARGINE) 1 /0.01ml (100units/ml) SC SCH (06:36)
[2024-03-15 06:41] LABS: Basophils # (auto) 0.1 10 ^3/uL (0-0.2); Hemoglobin 9.9 g/dL (12.2-16.2); Monocytes # (auto) 0.7 10 ^3/uL (0-1.3); Monocytes % (auto) 7.1 % (0.0-12.0); Red Cell Distribution Width 17.6 % (11.8-14.3); White Blood Cell 9.8 10^3/uL (4.4-10.8)
[2024-03-15 06:46] LABS: Basophils % (auto) 0.9 % (0.0-2.0); Eosinophils # (auto) 0.2 10 ^3/uL (0-0.8); Lymphocytes # (auto) 4.2 10 ^3/uL (0.4-5.4); Lymphocytes % (auto) 42.8 % (10.0-50.0); Mean Corpuscular Hemoglobin 25.1 pg (28.0-32.0); Mean Corpuscular Hgb Conc. 31.8 g/dL (32.0-36.0); Mean Corpuscular Volume 79.1 fL (80.0-100.0); Neutrophils # (auto) 4.6 10 ^3/uL (1.6-8.6); Neutrophils % (auto) 47.2 % (37.0-80.0); Nucleated Red Blood Cells % 0.2 %; Platelet Count (auto) 409 10^3/uL (140-450); Red Blood Cells 3.92 10^6/uL (4.0-5.20)
[2024-03-15 06:56] LABS: Calcium 9.4 mg/dL (8.7-10.4); Chloride 103 mmol/L (98-107); Potassium 3.4 mmol/L (3.5-5.1); Sodium 136 mmol/L (136-145)
[2024-03-15 06:57] LABS: Anion Gap 8 (5-15); Carbon Dioxide 25 mmol/L (20-31)
[2024-03-15 07:02] LABS: Blood Urea Nitrogen 15 mg/dL (9-23); Glucose 186 mg/dL (74-106)
[2024-03-15 07:14] LABS: BUN/Creatinine Ratio 11.8 (10.0-20.0)
[2024-03-15] MEDS: POTASSIUM CHL 20 Meq TABLET PO ONE (10:33)
[2024-03-15] MEDS: SPIRONOLACTONE 25 MG TAB PO SCH (10:37)
[2024-03-15] MEDS: POTASSIUM EFFERVESENT TAB 25 MEQ PO ONE (11:17)
[2024-03-15] MEDS: POTASSIUM EFFERVESENT TAB 25 MEQ GT ONE (11:18)
[2024-03-15] MEDS: ONDANSETRON HCL 4 MG/2 ML VIAL IV PRN (11:18)
[2024-03-15] MEDS: MAGNESIUM SULFATE 1GM/100ML 100 ML IV ONE (11:19)
[2024-03-15] MEDS: IRON SUCROSE COMPLEX 100 ML IV SCH (13:23)
[2024-03-16 01:00] VITALS: BP 119/71; PULSE 87; RESP 20; TEMP 97.8; O2SAT 99
[2024-03-16 05:00] VITALS: BP 116/74; PULSE 93; RESP 20; TEMP 97.8; O2SAT 92
[2024-03-16 06:16] LABS: Basophils # (auto) 0.1 10 ^3/uL (0-0.2); Mean Corpuscular Hgb Conc. 32.3 g/dL (32.0-36.0); Monocytes # (auto) 0.7 10 ^3/uL (0-1.3); Neutrophils # (auto) 4.5 10 ^3/uL (1.6-8.6); Red Blood Cells 3.89 10^6/uL (4.0-5.20)
[2024-03-16 06:20] LABS: Basophils % (auto) 0.9 % (0.0-2.0); Eosinophils # (auto) 0.2 10 ^3/uL (0-0.8); Eosinophils % (auto) 2.8 % (0.0-7.0); Lymphocytes # (auto) 3.1 10 ^3/uL (0.4-5.4); Lymphocytes % (auto) 36.1 % (10.0-50.0); Mean Corpuscular Hemoglobin 25.8 pg (28.0-32.0); Mean Corpuscular Volume 79.8 fL (80.0-100.0); Monocytes % (auto) 8.6 % (0.0-12.0); Neutrophils % (auto) 51.6 % (37.0-80.0); Nucleated Red Blood Cells % 0.1 %; Platelet Count (auto) 406 10^3/uL (140-450); Red Cell Distribution Width 17.5 % (11.8-14.3); White Blood Cell 8.6 10^3/uL (4.4-10.8)
[2024-03-16 06:28] LABS: Alanine Aminotransferase 10 U/L (7-40); Albumin 4.1 g/dL (3.2-4.8); Alkaline Phosphatase 64 U/L (46-116); Anion Gap 6 (5-15); Aspartate Aminotransferase 8 U/L (13-40); BUN/Creatinine Ratio 11.9 (10.0-20.0); Blood Urea Nitrogen 16 mg/dL (9-23); Calcium 9.6 mg/dL (8.7-10.4); Carbon Dioxide 27 mmol/L (20-31); Chloride 106 mmol/L (98-107); Glucose 173 mg/dL (74-106); Magnesium 2.2 mg/dL (1.6-2.6); Potassium 4.1 mmol/L (3.5-5.1); Sodium 139 mmol/L (136-145)
[2024-03-16 06:29] LABS: Bilirubin, Total 0.3 mg/dL (0.2-1.0); Total Protein 6.8 g/dL (5.7-8.2)
[2024-03-16 08:00] VITALS: PULSE 90
[2024-03-16 09:00] VITALS: BP 107/67; PULSE 86; PULSE 92; RESP 14; TEMP 97.8; O2SAT 94
[2024-03-16] MEDS ORDERED: NIFEdipine ER 30 MG TAB PO SCH (09:15)
[2024-03-16] MEDS: NIFEdipine ER 30 MG TAB PO SCH (10:00)
[2024-03-16 13:00] VITALS: BP 117/72; PULSE 85; RESP 15; TEMP 97.6; O2SAT 96
[2024-03-16] MEDS ORDERED: DOCUSATE SOD 100 MG CAP PO PRN (14:15)
[2024-03-16 17:00] VITALS: BP 112/71; PULSE 89; RESP 17; TEMP 98.1; O2SAT 99
[2024-03-16] MEDS ORDERED: PANT40T PO (17:15)
[2024-03-16] MEDS ORDERED: BUME2TAB5 PO (17:25)
[2024-03-16] MEDS ORDERED: POTA-36 PO (17:27)
[2024-03-17 23:06] LABS: Kappa Lite Chain Free Serum 28.8 mg/L (3.3-19.4)
== END 2024-03-16 18:45 | disposition home or self-care (01) | DRG 194 ==
LOC: ER 04:05 → EDSEX 04:05 → EDBD 04:05 → EDUNIT# 04:05 → TELE 09:11 → TELE-EAST 18:40
PROVIDERS: ADMIT Internal Medicine; ATTEND Internal Medicine
DX: I13.0 Hypertensive heart and chronic kidney disease with heart failure and stage 1 through stage 4 chronic kidney disease, or unspecified chronic kidney disease (principal); J96.01 Acute respiratory failure with hypoxia; I21.A1 Myocardial infarction type 2; D50.9 Iron deficiency anemia, unspecified; E11.22 Type 2 diabetes mellitus with diabetic chronic kidney disease; E66.9 Obesity, unspecified; I50.23 Acute on chronic systolic (congestive) heart failure; E78.5 Hyperlipidemia, unspecified; F17.210 Nicotine dependence, cigarettes, uncomplicated; N18.2 Chronic kidney disease, stage 2 (mild); I25.10 Atherosclerotic heart disease of native coronary artery without angina pectoris; I16.0 Hypertensive urgency; E87.6 Hypokalemia; Z86.73 Personal history of transient ischemic attack (TIA), and cerebral infarction without residual deficits; Z83.3 Family history of diabetes mellitus; Z82.49 Family history of ischemic heart disease and other diseases of the circulatory system; Z79.82 Long term (current) use of aspirin; Z79.899 Other long term (current) drug therapy; Z87.440 Personal history of urinary (tract) infections; Z68.30 Body mass index [BMI] 30.0-30.9, adult
CPT/HCPCS: 36415; 71045; 80048; 80053; 80061; 80307; 81001; 82728; 82962; 83521; 83540; 83550; 83735; 83880; 84155; 84165; 84443; 84484; 84702; 85025; 87081; 93005; 93306; G0378; J1756; J1815; J2405

== ENCOUNTER 2024-08-09 16:04 | Inpatient (IN) | payer MEDICAID ==
[~2024-08-09] VITALS: Ht 154.9 cm; Wt 83.5 kg
[~2024-08-09 16:04] MED LIST changes: +BUME2TAB5 PO; +PANT40T PO; +POTA-36 PO
[2024-08-09] MEDS ORDERED: FUROSEMIDE 40 MG/4 ML VIAL IV ONE (16:15)
[2024-08-09] MEDS: ASPirin 325 MG TAB PO ONE (16:28)
[2024-08-09] MEDS: NITROGLYCERIN 2% OINT 1GM PKG TD ONE (16:29)
[2024-08-09 16:32] LABS: Basophils # (auto) 0.1 10 ^3/uL (0-0.2); Eosinophils # (auto) 0.1 10 ^3/uL (0-0.8); Hemoglobin 11.4 g/dL (12.2-16.2); Lymphocytes # (auto) 2.3 10 ^3/uL (0.4-5.4); Monocytes # (auto) 0.5 10 ^3/uL (0-1.3); Neutrophils # (auto) 5.9 10 ^3/uL (1.6-8.6)
[2024-08-09 16:34] LABS: Basophils % (auto) 1.3 % (0.0-2.0); Eosinophils % (auto) 1.3 % (0.0-7.0); Hematocrit 35.8 % (36.0-46.0); Mean Corpuscular Hemoglobin 25.6 pg (28.0-32.0); Mean Corpuscular Hgb Conc. 31.8 g/dL (32.0-36.0); Mean Corpuscular Volume 80.3 fL (80.0-100.0); Neutrophils % (auto) 65.4 % (37.0-80.0); Nucleated Red Blood Cells % 0.1 %; Platelet Count (auto) 417 10^3/uL (140-450); Red Blood Cells 4.46 10^6/uL (4.0-5.20); Red Cell Distribution Width 19.7 % (11.8-14.3)
[2024-08-09 16:39] LABS: Chloride 102 mmol/L (98-107); Potassium 3.6 mmol/L (3.5-5.1); Sodium 139 mmol/L (136-145)
[2024-08-09 16:40] LABS: Anion Gap 12 (5-15); Carbon Dioxide 25 mmol/L (20-31)
[2024-08-09] MEDS: IPRATROPIUM BROM 0.5 MG/2.5ML INH SOL NEB ONE (16:44)
[2024-08-09] MEDS: ALBUTEROL SULF 2.5 MG/0.5ML(0.5%) NEB SOLN NEB ONE (16:44)
[2024-08-09 16:45] LABS: BUN/Creatinine Ratio 10.4 (10.0-20.0); Blood Urea Nitrogen 12 mg/dL (9-23)
[2024-08-09] MEDS: HYDROcodone-ACET 5/325MG TAB ONE (16:46)
[2024-08-09 16:50] LABS: Calcium 10.5 mg/dL (8.7-10.4); Glucose 223 mg/dL (74-106)
[2024-08-09] MEDS: HYDROcodone-ACET 5/325MG TAB PO ONE (16:54)
--- NOTE | 2024-08-09 17:17 | ED.PDOC ---
HPI Comments 34Y F with PMHx DM, HTN, HLD, CHF, AR, and TIA presents to ED for chief complaint chest pain x today with SOB. She denies fever, cough, no nausea, vomiting, diaphoresis or edema. No other symptoms reported. Pt was last discharged from [facility] on 03/16/2024. Chief Complaint: Chest Pain Time Seen by : 17:00 Primary Care Provider: NONE @ THIS TIME Reviewed Notes: Nurses Notes, Medications, Allergies Allergies: Coded Allergies: NO KNOWN ALLERGIES (Unverified , 04/17/17) Home Meds Active Scripts Potassium Chloride (POTASSIUM CHLORIDE CR) 10 Meq Tb, 1 TAB PO DAILY, #30 TAB 0 Refills Prov:DREW MARQUEZ MD 03/16/24 Bumetanide (Bumetanide) 2 Mg Tab, 1 TAB PO DAILY PRN, #30 TAB 0 Refills Prov:DREW MARQUEZ MD 03/16/24 Pantoprazole Sodium Sesquihydr (Pantoprazole Sodium) 40 Mg Tab, 40 MG PO DAILY f or 30 Days, #30 TAB Prov:DREW MARQUEZ MD 03/16/24 Sacubitril-Valsartan (Entresto 24-26 mg) 1 Tab Tab, 1 TAB PO DAILY for 30 Days, #30 TAB 3 Refills Prov:MARIA G DUNNE DO 02/24/24 Nifedipine (Nifedipine ER) 30 Mg Tab, 30 MG PO DAILY for 30 Days, #30 TAB 3 Refills Prov:MARIA G DUNNE DO 02/24/24 Metoprolol Succinate (Toprol Xl) 50 Mg Tab, 25 MG PO DAILY for 30 Days, #15 TAB 3 Refills Prov:MARIA G DUNNE DO 02/24/24 Empagliflozin (Jardiance) 10 Mg Tab, 10 MG PO DAILY for 30 Days, #30 TAB 3 Refills Prov:MARIA G DUNNE DO 02/24/24 Atorvastatin Calcium (ATORVASTATIN CALCIUM) 20 Mg Tab, 40 MG PO HS for 30 Days, #60 TAB 3 Refills Prov:MARIA G DUNNE DO 02/24/24 Atorvastatin Calcium (Lipitor) 40 Mg Tab, 1 TAB PO QPM, #90 TAB 1 Refill Prov:PRITI GELLER MD 10/13/23 Sacubitril-Valsartan (Entresto 24-26 mg) 1 Tab Tab, 1 TAB PO BID, #60 TAB 1 Refill Prov:PRITI GELLER MD 10/13/23 Aspirin (Aspirin Low Dose) 81 Mg Tab, 81 MG PO DAILY, #60 TAB Prov:PRITI GELLER MD 10/13/23 Information Source: Patient Mode of Arrival: Ambulatory Severity: Mild Timing: Hours Duration: Since onset Prehospital treatment: None Location: Chest (R) Radiation: No Radiation Quality: Other Onset: At Rest Cardiac Risk Factors: Smoker, Hyperlipidemia, HTN, Diabetes PE Risk Factors: None History of: Similar pain in past, AR Modifying Factors: Nothing Associated Signs and Symptoms: SOB Past Medical History PAST MEDICAL HISTORY: CHF, DM, High Lipids, HTN, AR, TIA, UTI'S Surgical History: Denies all surgeries [employer] History: Denies all [employer] Hx Family History Family History: Reviewed,noncontributory to illness Social History Smoker: Cigarettes, Less Than 1 Pack/Day Alcohol: Occasionally Drugs: Denies Drug Use Lives In: Home Constitutional: denies: chills, diaphoresis, fatigue, fever, malaise, sweats, weakness, others EENTM: denies: blurred vision, double vision, ear bleeding, ear discharge, ear drainage, ear pain, ear ringing, eye pain, eye redness, hearing loss, mouth pain, mouth swelling, nasal discharge, nose bleeding, nose congestion, nose pain, photophobia, tearing, throat pain, throat swelling, voice changes, others Respiratory: reports: shortness of breath; denies: cough, hemoptysis, orthopnea, SOB at rest, SOB with excertion, stridor, wheezing, others Cardiovascular: reports: chest pain; denies: dizzy spells, diaphoresis, Dyspnea on exertion, edema, irregular heart beat, left arm pain, lightheadedness, palpitations, PND, syncope, others Gastrointestinal: denies: abdomen distended, abdominal pain, blood streaked bowels, constipated, diarrhea, dysphagia, difficulty swallowing, hematemesis, melena, nausea, poor appetite, poor fluid intake, rectal bleeding, rectal pain, vomiting, others Genitourinary: denies: abnormal vagina bleeding, burning, dyspareunia, dysuria, flank pain, frequency, hematuria, incontinence, pain, , vagina discharge, urgency, others Neurological: denies: dizziness, fainting, headache, left sided numbness, left sided weakness, numbness, paresthesia, pre-existing deficit, right sided numbness, right sided weakness, seizure, speech problems, tingling, tremors, weakness, others Musculoskeletal: denies: back pain, gout, joint pain, joint swelling, muscle pain, muscle stiffness, neck pain, others Integumetry: denies: bruises, change in color, change in hair/nails, dryness, laceration, lesions, lumps, rash, wounds, others Allergic/Immunocompromised: denies: Difficulty Healing, Frequent Infections, Hives, Itching, others Hematologic/Lymphatic: denies: anemia, blood clots, easy bleeding, easy bruising, swollen glands, others Endocrine: denies: excessive hunger, excessive sweating, excessive thirst, excessive urination, flushing, intolerance to cold, intolerance to heat, unexplained weight gain, unexplained weight loss, others Psychiatric: denies: anxiety, bipolar disorder, depression, hopeless, panic disorder, schizophrenia, sleepless, suicidal, others All Other Systems: Reviewed and Negative Physical Exam General Appearance: Mild Distress, Obese HEENT: Other (Pupils and face symmetric, moist mucous membranes) Neck: Full Range of Motion, Normal Inspection Respiratory: Decreased Breath Sounds, No Accessory Muscle Use, Respiratory Distress Cardiovascular: No Edema, No JVD, Tachycardia Breast Exam: Deferred Gastrointestinal: Non Tender, Soft Genitalia: Deferred Pelvic: Deferred Rectal: Deferred Extremities: Normal inspection, Normal range of motion, Non-tender, No pedal edema Neurologic: Alert (Oriented x4), Normal Affect, Normal Mood, Other (Ambulatory. No gross focal deficit.) Cerebellar Function: NOT DONE Reflexes: NOT DONE Skin: Dry, Normal Color, Warm Lymphatic: NOT DONE EKG EKG : Comments Sinus tach, rate 122, normal CO and QRS intervals, QTC prolonged at 496, left axis deviation, possible old inferior or anteroseptal infarct, nonspecific T changes. Was a procedure done? Was a procedure done?: No CP Differential Dx Differential Diagnosis: Angina, Electrolyte Disorder, Heart Failure, AR, Pulmonary Embolus Differential Diagnosis: CHF Differential Diagnosis: Angina, Aortic dissection, Chest Wall Pain, Esophageal reflux/spasm, Gastritis, Myocardial Infarction, Pericarditis, Pneumonia X-Ray, Labs, Meds, VS Vital Signs Date Time Temp Pulse Resp B/P (MAP) Pulse Ox O2 Delivery O2 Flow Rate FiO2 08/09/24 17:29 113 18 150/98 (115) 98 08/09/24 17:27 150/98 08/09/24 16:47 98.6 107 16 132/87 (102) 100 98.6 08/09/24 16:47 107 08/09/24 16:44 20 98 Room Air* 0 21 08/09/24 16:29 132/87 08/09/24 16:18 98.4 108 20 141/106 (118) 98 08/09/24 16:10 112 Lab Test 08/09/24 16:18 Range/Units White Blood Count 9.0 4.4-10.8 10^3/uL Red Blood Count 4.46 4.0-5.20 10^6/uL Hemoglobin 11.4 L 12.2-16.2 g/dL Hematocrit 35.8 L 36.0-46.0 % Mean Corpuscular Volume 80.3 80.0-100.0 fL Mean Corpuscular Hemoglobin 25.6 L 28.0-32.0 pg Mean Corpuscular Hemoglobin Concent 31.8 L 32.0-36.0 g/dL Red Cell Distribution Width 19.7 H 11.8-14.3 % Platelet Count 417 140-450 10^3/uL Mean Platelet Volume 8.6 6.9-10.8 fL Neutrophils (%) (Auto) 65.4 37.0-80.0 % Lymphocytes (%) (Auto) 26.0 10.0-50.0 % Monocytes (%) (Auto) 6.0 0.0-12.0 % Eosinophils (%) (Auto) 1.3 0.0-7.0 % Basophils (%) (Auto) 1.3 0.0-2.0 % Neutrophils # (Auto) 5.9 1.6-8.6 10 ^3/uL Lymphocytes # (Auto) 2.3 0.4-5.4 10 ^3/uL Monocytes # (Auto) 0.5 0-1.3 10 ^3/uL Eosinophils # (Auto) 0.1 0-0.8 10 ^3/uL Basophils # (Auto) 0.1 0-0.2 10 ^3/uL Nucleated Red Blood Cells 0.1 % D-Dimer, Quantitative 0.24 0.0-0.49 mg/L FEU Sodium Level 139 136-145 mmol/L Potassium Level 3.6 3.5-5.1 mmol/L Chloride Level 102 98-107 mmol/L Carbon Dioxide Level 25 20-31 mmol/L Anion Gap 12 5-15 Blood Urea Nitrogen 12 9-23 mg/dL Creatinine 1.15 H 0.550-1.02 mg/dL Glomerular Filtration Rate Calc 63 >90 mL/min BUN/Creatinine Ratio 10.4 10.0-20.0 Serum Glucose 223 H 74-106 mg/dL Hemoglobin A1c 9.4 H <5.7 % A1C Calcium Level 10.5 H 8.7-10.4 mg/dL Troponin I High Sensitivity 55 *H </=34 ng/L B-Type Natriuretic Peptide 27.90 0-100 pg/mL Beta HCG, Quantitative 1.1 L 1.5-4.2 mIU/mL Current Medications Medications (Trade) Dose Ordered Sig/Sharee Route Start Time Stop Time Status Last Admin Albuterol (Ventolin Medneb) 2.5 mg ONCE ONCE NEB 08/09/24 16:15 08/09/24 16:16 DC 08/09/24 16:44 Ipratropium Curtis (Atrovent Medneb) 0.5 mg ONCE ONCE NEB 08/09/24 16:15 08/09/24 16:16 DC 08/09/24 16:44 Nitroglycerin (Nitro-Bid) 1 pkg ONCE ONCE TD 08/09/24 16:15 08/09/24 16:16 DC 08/09/24 16:29 Aspirin 325 mg ONCE ONCE PO 08/09/24 16:30 08/09/24 16:31 DC 08/09/24 16:28 Bumetanide (Bumex Injection) 1 mg ONCE ONCE IV 08/09/24 16:30 08/09/24 16:49 DC 08/09/24 17:27 ORDERING PHYSICIAN: TRAN SKAGGS MD PROCEDURE(s): CXRP - CHEST PORTABLE REASON: sob cp ORDER NUMBER(s): [id number], ACCESSION NUMBER(s): [id number] CHEST RADIOGRAPH Indication: sob cp Technique: Single frontal view of the chest was obtained COMPARISON: XY CHEST PORTABLE on DOS: 03/13/24, XY CHEST PORTABLE on DOS: 02/21/24, CHEST PORTABLE on DOS: 01/20/21 FINDINGS: Lines and Tubes: None Lungs: Mild increased interstitial prominence Pleura: No effusion. No pneumothorax. Cardiomediastinal contours: Unremarkable Bones: Unremarkable IMPRESSION: Mild pulmonary vascular congestion versus viral pneumonia X-Ray, Labs, Meds, VS Comment 34Y F with PMHx DM, HTN, HLD, CHF, AR, and TIA presents to ED for chief complaint chest pain x today with SOB. Vitals remarkable for heart rate 113, BP 150/98 Exam remarkable for tachycardia and mild respiratory distress with diminished breath sounds Rhythm strip independently interpreted by me: Sinus tach, rate 113, no ectopy. Chest x-ray IMPRESSION: Mild pulmonary vascular congestion versus viral pneumonia CBC unremarkable, metabolic panel remarkable for creatinine 1.15, BNP normal, D- dimer negative, troponin elevated at 54 Patient treated with the following in the ED: Aspirin 325 mg p.o., Nitro-Bid 1/2 in to chest wall, Bumex 1 mg IV, Alba 5/325 mg p.o. On re-evaluation, patient states chest pain and shortness a breath have improved. Vitals are stable. Plan is to admit the patient for Cardiology evaluation. Time of 1ST Reevaluation: 17:30 Reevaluation 1ST: Unchanged Patient Education/Counseling: Diagnosis, Treatment Family Education/Counseling: No Family Present Departure 1 Departure Time of Disposition: 20:00 Impression: Primary Impression: Non-STEMI (non-ST elevated myocardial infarction) Additional Impression: CHF exacerbation Qualified Codes: I50.9 - Heart failure, unspecified Disposition: 09 ADMITTED INPATIENT Admit to: Tele Condition: Guarded Critical Care Note Critical Care Time?: No Stability Stability form required: No Heart Score Heart Score: Heart Score Response (Comments) Value History Moderate Suspicious 1 EKG Repolarization Disturb 1 Age <45 0 Risk Factors >3 or Hx ASHD 2 Troponin 1-2 x's Normal limit 1 Total 5 I personally scribed for TRAN SKAGGS MD ([email or web address]) on 08/09/24 at 17:17. Electronically submitted by Jamaica Wong ([facility]). I personally scribed for TRAN SKAGGS MD ([email or web address]) on 08/09/24 at 19:15. Electronically submitted by Jamaica Wong ([facility]). TRAN SKAGGS MD Aug 09, 2024 17:17
[2024-08-09] MEDS: BUMETANIDE 1mg/4ml VIAL (0.25mg/ml) IV ONE (17:27)
[2024-08-09] MEDS ORDERED: MORPHINE SULFATE INJ 2 MG/ml SYRG IV PRN (17:45)
[2024-08-09] MEDS ORDERED: NITROGLYCERIN 0.4 MG SL TAB SL PRN (17:45)
--- NOTE | 2024-08-09 17:53 | DVHHP2 ---
History of Present Illness Reason for Visit: Chest pain History of Present Illness Patient was a 34-year-old female presenting to the emergency room with reports of substernal chest pain, radiating to her back. Patient also reports having dyspnea on exertion, PND, as well as orthopnea. Patient was a significant history of congestive heart failure with last ejection fraction 40% on echocardiogram, hypertension, as well as use of marijuana. Patient was states that the transdermal nitroglycerin has not helped her chest pain, in addition to having a refractory headache. Patient was given Luebbering without any resolution of her discomfort. Patient denies missing any of her prescribed medications. Patient also reports not following any type of fluid restriction, eating high sodium diet including Doritos today. Patient was also refusing Lasix as well as Jardiance. Patient was noted to have accelerated hypertension on admission. She will be admitted for further treatment, as well as troponin trending. Cardiovascular: CHF, HTN Past Surgical History: None Family History: None Smoke: # pack years ALCOHOL: none Drugs: Marijuana Lives: with Family Review of Systems Constitutional: No: Fever, Chills, Sweats, Weakness, Malaise, Other Eyes: No: Pain, Vision change, Conjunctivae inflammation, Eyelid inflammation, Other, Redness ENT: No: Ear pain, Ear discharge, Nose pain, Nose discharge, Nose congestion, Mouth pain, Mouth swelling, Throat pain, Throat swelling, Other Respiratory: No: Cough, Dry, Shortness of breath, SOB with excertion, Wheezing, Hemoptysis, Pleuritic Pain, Sputum, Wheezing, Other Cardiovascular: Chest Pain Gastrointestinal: No: Nausea, Vomiting, Abdominal Pain, Diarrhea, Constipation, Melena, Hematochezia, Other Genitourinary: No Dysuria, No Frequency, No Incontinence, No Hematuria, No Retention, No Other Musculoskeletal: No: other, neck pain, shoulder pain, arm pain, back pain, hand pain, leg pain, foot pain Skin: No: Rash, Lesions, Jaundice, Bruising, Other Neurological: No: Weakness, Numbness, Incoordination, Change in speech, Confusion, Seizures, Other Allergies: Coded Allergies: NO KNOWN ALLERGIES (Unverified , 04/17/17) Medications Current Medications Medications Dose Ordered Sig/Sharee Route Start Time Stop Time Status Last Admin Dose Admin Nitroglycerin 0.4 mg Q5MINP PRN SL 08/09/24 17:45 UNV Morphine Sulfate 2 mg Q30M PRN IV 08/09/24 17:45 UNV Aspirin 81 mg DAILY PO 08/10/24 10:00 UNV Metoprolol Succinate 25 mg DAILY PO 08/10/24 10:00 UNV Nifedipine 30 mg DAILY PO 08/10/24 10:00 UNV Sacubitril/ Valsartan 1 tab BID PO 08/09/24 22:00 UNV Sacubitril/ Valsartan 1 tab DAILY PO 08/10/24 10:00 UNV Patient Own Medication 1 tab QPM PO 08/09/24 18:00 UNV Exam Vital Signs Vital Signs Date Time Temp Pulse Resp B/P (MAP) Pulse Ox O2 Delivery O2 Flow Rate FiO2 08/09/24 17:29 113 18 150/98 (115) 98 08/09/24 16:47 98.6 98.6 08/09/24 16:44 Room Air* 0 21 General Appearance: Alert, Oriented X3, mild distress HEENT: Atraumatic, PERRLA Respiratory: Clear to auscultation, Normal air movement Cardiovascular: Normal S1, Normal S2 Abdominal: Normal bowel sounds, Soft, No tenderness Neuro: Normal gait, Normal speech Psych/Mental Status: Mental status NL, Mood NL Labs/Xrays Labs Test 08/09/24 16:18 Range/Units White Blood Count 9.0 4.4-10.8 10^3/uL Red Blood Count 4.46 4.0-5.20 10^6/uL Hemoglobin 11.4 L 12.2-16.2 g/dL Hematocrit 35.8 L 36.0-46.0 % Mean Corpuscular Volume 80.3 80.0-100.0 fL Mean Corpuscular Hemoglobin 25.6 L 28.0-32.0 pg Mean Corpuscular Hemoglobin Concent 31.8 L 32.0-36.0 g/dL Red Cell Distribution Width 19.7 H 11.8-14.3 % Platelet Count 417 140-450 10^3/uL Mean Platelet Volume 8.6 6.9-10.8 fL Neutrophils (%) (Auto) 65.4 37.0-80.0 % Lymphocytes (%) (Auto) 26.0 10.0-50.0 % Monocytes (%) (Auto) 6.0 0.0-12.0 % Eosinophils (%) (Auto) 1.3 0.0-7.0 % Basophils (%) (Auto) 1.3 0.0-2.0 % Neutrophils # (Auto) 5.9 1.6-8.6 10 ^3/uL Lymphocytes # (Auto) 2.3 0.4-5.4 10 ^3/uL Monocytes # (Auto) 0.5 0-1.3 10 ^3/uL Eosinophils # (Auto) 0.1 0-0.8 10 ^3/uL Basophils # (Auto) 0.1 0-0.2 10 ^3/uL Nucleated Red Blood Cells 0.1 % Sodium Level 139 136-145 mmol/L Potassium Level 3.6 3.5-5.1 mmol/L Chloride Level 102 98-107 mmol/L Carbon Dioxide Level 25 20-31 mmol/L Anion Gap 12 5-15 Blood Urea Nitrogen 12 9-23 mg/dL Creatinine 1.15 H 0.550-1.02 mg/dL Glomerular Filtration Rate Calc 63 >90 mL/min BUN/Creatinine Ratio 10.4 10.0-20.0 Serum Glucose 223 H 74-106 mg/dL Calcium Level 10.5 H 8.7-10.4 mg/dL Troponin I High Sensitivity 55 *H </=34 ng/L B-Type Natriuretic Peptide 27.90 0-100 pg/mL Beta HCG, Quantitative 1.1 L 1.5-4.2 mIU/mL Assessment/Plan Assessment/Plan Impression: -chest pain, rule out ACS -accelerated hypertension -obesity -noted history of marijuana use -hyperglycemia Plan discussed with: Patient My Orders Orders - SMITH SOLARES GRID CASTER Procedure Category Date Status Time Admit ADMIT 08/09/24 Transmitted 17:43 Nitroglycerin [facility] 08/09/24 Logged Sublingual (Ntrostat 17:45 Morphine Sulfate [facility] 08/09/24 Logged Injection 17:45 Stat Ekg For Chest [facility] 08/09/24 In Process Pain 17:43 Notify Of Changes [facility] 08/09/24 In Process From Base 17:43 International Logistics Manager For [facility] 08/09/24 In Process 24 Hours 17:43 Emergency Dysrhythmia [facility] 08/09/24 In Process Protocol 17:43 Rhythm Strips Once [facility] 08/09/24 In Process Every Shift 17:43 Oxygen By Nasal RT 08/09/24 Transmitted Cannula 17:43 Hemoglobin A1c LAB 08/09/24 Logged 17:43 Aspirin Enteric [facility] 08/10/24 Logged Coated Tablet 10:00 Metoprolol Xl [facility] 08/10/24 Logged Succinate (Toprol Xl) 10:00 Nifedipine Er PH[facility] 08/10/24 Logged (Procardia Xl 10:00 Sacubitril-Valsartan PHA 08/09/24 Logged (Entresto 24-26 Mg 22:00 Sacubitril-Valsartan PHA 08/10/24 Logged (Entresto 24-26 Mg 10:00 (Nf) Atorvastatin PHA 08/09/24 Logged Calcium (Lipitor) 18:00 Date of Service: Aug 09, 2024 Billing Provider: SMITH SOLARES NP Common Visit Codes: [id number] INP/OBS CARE (HIGH) SMITH SOLARES NP Aug 09, 2024 17:53
[2024-08-09] MEDS ORDERED: ACETAMINOPHEN 500 MG TAB or CAP PO PRN (18:00)
[2024-08-09] MEDS ORDERED: ONDANSETRON HCL 4 MG/2 ML VIAL IV PRN (18:00)
[2024-08-09] MEDS ORDERED: HYDROcodone-ACET 5/325MG TAB PO PRN (18:00)
[2024-08-09] MEDS: ATORVASTATIN 20 MG TAB PO SCH (18:19)
[2024-08-09] MEDS: SPIRONOLACTONE 25 MG TAB PO SCH (18:19)
[2024-08-09 18:20] VITALS: BP 137/94; PULSE 103; RESP 17; TEMP 98.4; O2SAT 99
--- NOTE | 2024-08-09 18:38 | DVH ---
CHEST RADIOGRAPH Indication: sob cp Technique: Single frontal view of the chest was obtained COMPARISON: XY CHEST PORTABLE on DOS: 03/13/24, XY CHEST PORTABLE on DOS: 02/21/24, CHEST PORTABLE on D OS: 01/20/21 FINDINGS: Lines and Tubes: None Lungs: Mild increased interstitial prominence Pleura: No effusion. No pneumothorax. Cardiomediastinal contours: Unremarkable Bones: Unremarkable IMPRESSION: Mild pulmonary vascular congestion versus viral pneumonia
[2024-08-09] MEDS ORDERED: SACUBITRIL-VALSARTAN 24mg/26mg TAB PO SCH (22:00)
--- NOTE | 2024-08-10 07:41 | DVHDS2 ---
Discharge Summary Date of Admission Aug 09, 2024 at 17:43 Date of Discharge: Aug 09, 2024 Admitting Diagnosis Chest pain rule out ACS Labs/Diagnostic Data: Laboratory Results Test 08/09/24 18:17 08/09/24 16:18 Troponin I High Sensitivity 54 ng/L (</=34) White Blood Count 9.0 10^3/uL (4.4-10.8) Red Blood Count 4.46 10^6/uL (4.0-5.20) Hemoglobin 11.4 g/dL (12.2-16.2) Hematocrit 35.8 % (36.0-46.0) Mean Corpuscular Volume 80.3 fL (80.0-100.0) Mean Corpuscular Hemoglobin 25.6 pg (28.0-32.0) Mean Corpuscular Hemoglobin Concent 31.8 g/dL (32.0-36.0) Red Cell Distribution Width 19.7 % (11.8-14.3) Platelet Count 417 10^3/uL (140-450) Mean Platelet Volume 8.6 fL (6.9-10.8) Neutrophils (%) (Auto) 65.4 % (37.0-80.0) Lymphocytes (%) (Auto) 26.0 % (10.0-50.0) Monocytes (%) (Auto) 6.0 % (0.0-12.0) Eosinophils (%) (Auto) 1.3 % (0.0-7.0) Basophils (%) (Auto) 1.3 % (0.0-2.0) Neutrophils # (Auto) 5.9 10 ^3/uL (1.6-8.6) Lymphocytes # (Auto) 2.3 10 ^3/uL (0.4-5.4) Monocytes # (Auto) 0.5 10 ^3/uL (0-1.3) Eosinophils # (Auto) 0.1 10 ^3/uL (0-0.8) Basophils # (Auto) 0.1 10 ^3/uL (0-0.2) Nucleated Red Blood Cells 0.1 % D-Dimer, Quantitative 0.24 mg/L FEU (0.0-0.49) Sodium Level 139 mmol/L (136-145) Potassium Level 3.6 mmol/L (3.5-5.1) Chloride Level 102 mmol/L (98-107) Carbon Dioxide Level 25 mmol/L (20-31) Anion Gap 12 (5-15) Blood Urea Nitrogen 12 mg/dL (9-23) Creatinine 1.15 mg/dL (0.550-1.02) Glomerular Filtration Rate Calc 63 mL/min (>90) BUN/Creatinine Ratio 10.4 (10.0-20.0) Serum Glucose 223 mg/dL (74-106) Hemoglobin A1c 9.4 % A1C (<5.7) Calcium Level 10.5 mg/dL (8.7-10.4) B-Type Natriuretic Peptide 27.90 pg/mL (0-100) Beta HCG, Quantitative 1.1 mIU/mL (1.5-4.2) Other Laboratory Tests 08/09/24 16:18 Brief Hx & Hospital Course: History of Present Illness Patient was a 34-year-old female presenting to the emergency room with reports of substernal chest pain, radiating to her back. Patient also reports having dyspnea on exertion, PND, as well as orthopnea. Patient was a significant history of congestive heart failure with last ejection fraction 40% on echocardiogram, hypertension, as well as use of marijuana. Patient was states that the transdermal nitroglycerin has not helped her chest pain, in addition to having a refractory headache. Patient was given Stirling without any resolution of her discomfort. Patient denies missing any of her prescribed medications. Patient also reports not following any type of fluid restriction, eating high sodium diet including Doritos today. Patient was also refusing Lasix as well as Jardiance. Patient was noted to have accelerated hypertension on admission. She will be admitted for further treatment, as well as troponin trending. Course of hospitalization: Patient was started on guideline directed medical therapy, with holding Lasix and Jardiance. Without counseled, the patient was decided to leave against medical advice. Condition at Discharge: Undetermined Final Diagnosis/Problems List Chest pain rule out ACS. Unable to rule out given patient left AMA Secondary diagnosis: -accelerated hypertension -obesity -noted history of marijuana use -hyperglycemia Discharge Disposition: AMA 34 Discharge Statement: "Patient was advised to return to the ER or call 911 if any headaches, dizziness, shortness of breath, chest pain, abdominal pain, bleeding, fevers, or worsening of medical condition. Patient was counseled about treatment plan, medications, possible side effects, patientverbalized understanding. All questions were answered to the best of my ability. This discharge took greater then 30 minutes in planning, reviewing documentation, counseling the patient, and discussing with other team members." ASSESSMENT ASSESSMENT Assessment Date of Service: Aug 10, 2024 Billing Provider: SMITH SOLARES NP Common Visit Codes: 78527-ONX/OBS DISCH DAY <30MIN SMITH SOLARES NP Aug 10, 2024 07:41
[2024-08-10] MEDS ORDERED: SACUBITRIL-VALSARTAN 24mg/26mg TAB PO SCH (10:00)
[2024-08-10] MEDS ORDERED: METOPROLOL SUCCINATE XL 50 MG TAB PO SCH (10:00)
[2024-08-10] MEDS ORDERED: NIFEdipine ER 30 MG TAB PO SCH (10:00)
[2024-08-10] MEDS ORDERED: ASPirin-EC 81 mg tab PO SCH (10:00)
--- NOTE | 2024-08-11 10:53 | ECG ---
[facility] Test Date: 2024-08-09 Test Time: 16:10:35 Pat Name: RAMESH MARRERO Department: ER Room: [address] [place] [address] Gender: F Data Virtualization Consultant: ER : [id number] Requested By: TRAN HENLEY Order Number: [id number] Reading MD: Measurements Intervals Wheeler Rate: 112 P: 58 VT: 158 QRS: 27 QRSD: 83 T: 162 QT: 363 QTc: 496 Interpretive Statements Sinus tachycardia Nonspecific T abnormalities, lateral leads Borderline prolonged QT interval Please click the below link to view image of tracing.
== END 2024-08-09 19:52 | disposition left against medical advice (07) | DRG 199 ==
LOC: ER 16:04 → OVERFLOW 17:43
PROVIDERS: ADMIT Nurse Practitioner Acute Care; ATTEND Nurse Practitioner Acute Care
DX: I16.0 Hypertensive urgency (principal); I50.32 Chronic diastolic (congestive) heart failure; E11.65 Type 2 diabetes mellitus with hyperglycemia; I11.0 Hypertensive heart disease with heart failure; E66.9 Obesity, unspecified; E78.5 Hyperlipidemia, unspecified; Z53.29 Procedure and treatment not carried out because of patient's decision for other reasons; F17.210 Nicotine dependence, cigarettes, uncomplicated; Z68.34 Body mass index [BMI] 34.0-34.9, adult; Z79.899 Other long term (current) drug therapy; Z86.73 Personal history of transient ischemic attack (TIA), and cerebral infarction without residual deficits; Z79.82 Long term (current) use of aspirin
CPT/HCPCS: 36415; 71045; 80048; 83036; 83880; 84484; 84702; 85025; 85379; 93005; 94640; 96374; G0378

== ENCOUNTER 2024-08-15 22:38 | Inpatient (IN) | payer MEDICAID ==
[~2024-08-15] VITALS: Ht 154.9 cm; Wt 86.2 kg
--- NOTE | 2024-08-15 23:03 | ED.PDOC ---
HPI Comments 34 year old female came to ER via EMS due to chest pains. Patient has history of hypertension, diabetes and SC. Was seen here last August 09, diagnosed with SC but patient left AMA. Patient still experiencing intermittent episodes of chest pain that worsened few hours ago, substernal chest pains, pressure, constant, radiating to the back and associated with shortness of breath. Blood pressure on scene was 191/117 mmHg Chief Complaint: High Blood Pressure Time Seen by MD: 23:01 Primary Care Provider: NONE @ THIS TIME Reviewed Notes: Solar Designer Notes Allergies: Coded Allergies: NO KNOWN ALLERGIES (Unverified , 04/17/17) Home Meds Active Scripts Potassium Chloride (POTASSIUM CHLORIDE CR) 10 Meq Tb, 1 TAB PO DAILY, #30 TAB 0 Refills Prov:DREW MARQUEZ MD 03/16/24 Bumetanide (Bumetanide) 2 Mg Tab, 1 TAB PO DAILY PRN, #30 TAB 0 Refills Prov:DREW MARQUEZ MD 03/16/24 Pantoprazole Sodium Sesquihydr (Pantoprazole Sodium) 40 Mg Tab, 40 MG PO DAILY for 30 Days, #30 TAB Prov:DREW MARQUEZ MD 03/16/24 Sacubitril-Valsartan (Entresto 24-26 mg) 1 Tab Tab, 1 TAB PO DAILY for 30 Days, #30 TAB 3 Refills Prov:MARIA G DUNNE DO 02/24/24 Nifedipine (Nifedipine ER) 30 Mg Tab, 30 MG PO DAILY for 30 Days, #30 TAB 3 Refills Prov:MARIA G DUNNE DO 02/24/24 Metoprolol Succinate (Toprol Xl) 50 Mg Tab, 25 MG PO DAILY for 30 Days, #15 TAB 3 Refills Prov:MARIA G DUNNE DO 02/24/24 Empagliflozin (Jardiance) 10 Mg Tab, 10 MG PO DAILY for 30 Days, #30 TAB 3 Refills Prov:MARIA G DUNNE DO 02/24/24 Atorvastatin Calcium (ATORVASTATIN CALCIUM) 20 Mg Tab, 40 MG PO HS for 30 Days, #60 TAB 3 Refills Prov:MARIA G DUNNE DO 02/24/24 Atorvastatin Calcium (Lipitor) 40 Mg Tab, 1 TAB PO QPM, #90 TAB 1 Refill Prov:PRITI GELLER MD 10/13/23 Sacubitril-Valsartan (Entresto 24-26 mg) 1 Tab Tab, 1 TAB PO BID, #60 TAB 1 Refill Prov:PRITI GELLER MD 10/13/23 Aspirin (Aspirin Low Dose) 81 Mg Tab, 81 MG PO DAILY, #60 TAB Prov:PRITI GELLER MD 10/13/23 Information Source: Patient, Emergency Med Personnel Mode of Arrival: EMS Severity: Moderate Timing: Days Location: Substernal Radiation: Back Quality: Pressure Onset: With Light Exertion Cardiac Risk Factors: HTN, Diabetes History of: Similar pain in past, SC Associated Signs and Symptoms: SOB Review of Systems REVIEW OF SYSTEMS: No fever, no chills, or fatigue HEENT: No sore throat, no earache, no congestion, no neck pain. Cardiac: (+) chest pain. No palpitations. Lungs: (+) shortness of breath, no cough. GI: No nausea, no vomiting, no diarrhea, no constipation, no abdominal pain : No dysuria, frequency, or urgency. No hematuria. Musculoskeletal: No joint pain , no joint swelling, no extremity edema. Skin: No rash, no itching. Neuro: No headache, no dizziness, no weakness Vital Signs Vital Signs Date Time Temp Pulse Resp B/P (MAP) Pulse Ox O2 Delivery O2 Flow Rate FiO2 08/16/24 00:34 185/115 08/15/24 23:56 87 18 98 Room Air* 0 21 08/15/24 23:56 97.9 97.9 Physical Exam General: Awake, alert and oriented. No acute distress. Skin: Skin in warm, dry and intact. Appropriate color for ethnicity. Nailbeds pink with no cyanosis. HEENT: The head is normocephalic and atraumatic. Conjunctivae are clear without exudates or hemorrhage. Sclera is non-icteric. EOM are intact. No signs of nystagmus. Eyelids are normal in appearance without swelling or lesions. Oral mucosa is pink and moist Neck: The neck is supple with normal range of motion. No JVD. Cardiac: Heart rate and rhythm are normal. No murmurs, gallops, or rubs are auscultated. Respiratory: No signs of respiratory distress. Lung sounds are clear in all lobes bilaterally without rales, ronchi, or wheezes. Abdominal: Abdomen is soft, non-tender without distention. Bowel sounds are present and normoactive in all four quadrants. Extremities: Upper and lower extremities are atraumatic in appearance without deformity or edema. Neurological: The patient is awake, alert and oriented to person, place, and time with normal speech. Speech is clear. There is no facial asymmetry. Psychiatric: Appropriate mood and affect. Good judgement and insight. No visual or auditory hallucinations. Past Medical History PAST MEDICAL HISTORY: CHF, DM, High Lipids, HTN, SC, TIA, UTI'S Surgical History: Denies all surgeries HOTBED OPERATOR History: Denies all HOTBED OPERATOR Hx Family History Family History: Reviewed,noncontributory to illness Social History Smoker: Cigarettes, Less Than 1 Pack/Day Alcohol: Occasionally Drugs: Denies Drug Use Lives In: Home Was a procedure done? Was a procedure done?: No CP Differential Dx Differential Diagnosis: Other Differential Diagnosis: Angina, Chest Wall Pain, Costochondritis, Esophageal reflux/spasm, Gastritis, Myocardial Infarction, Pneumonia, Pulmonary Embolus, Other X-Ray, Labs, Meds, VS Vital Signs Date Time Temp Pulse Resp B/P (MAP) Pulse Ox O2 Delivery O2 Flow Rate FiO2 08/16/24 00:34 185/115 08/15/24 23:56 87 18 98 Room Air* 0 21 08/15/24 23:56 97.9 87 18 182/115 (137) 98 97.9 08/15/24 23:54 85 08/15/24 23:19 90 24 191/117 08/15/24 22:49 98.0 90 24 191/117 (141) 98 08/15/24 22:42 87 Lab Test 08/16/24 01:35 08/15/24 23:46 08/15/24 22:52 08/15/24 22:50 Range/Units Troponin I High Sensitivity 57 *H 64 *H 64 *H </=34 ng/L White Blood Count 9.0 4.4-10.8 10^3/uL Red Blood Count 3.84 L 4.0-5.20 10^6/uL Hemoglobin 10.1 L 12.2-16.2 g/dL Hematocrit 31.2 #L 36.0-46.0 % Mean Corpuscular Volume 81.4 80.0-100.0 fL Mean Corpuscular Hemoglobin 26.4 L 28.0-32.0 pg Mean Corpuscular Hemoglobin Concent 32.4 32.0-36.0 g/dL Red Cell Distribution Width 20.2 H 11.8-14.3 % Platelet Count 360 140-450 10^3/uL Mean Platelet Volume 8.5 6.9-10.8 fL Neutrophils (%) (Auto) 46.4 37.0-80.0 % Lymphocytes (%) (Auto) 41.9 10.0-50.0 % Monocytes (%) (Auto) 7.9 0.0-12.0 % Eosinophils (%) (Auto) 2.2 0.0-7.0 % Basophils (%) (Auto) 1.6 0.0-2.0 % Neutrophils # (Auto) 4.2 1.6-8.6 10 ^3/uL Lymphocytes # (Auto) 3.8 0.4-5.4 10 ^3/uL Monocytes # (Auto) 0.7 0-1.3 10 ^3/uL Eosinophils # (Auto) 0.2 0-0.8 10 ^3/uL Basophils # (Auto) 0.1 0-0.2 10 ^3/uL Nucleated Red Blood Cells 0.1 % Sodium Level 139 136-145 mmol/L Potassium Level 3.7 3.5-5.1 mmol/L Chloride Level 105 98-107 mmol/L Carbon Dioxide Level 24 20-31 mmol/L Anion Gap 10 5-15 Blood Urea Nitrogen 8 L 9-23 mg/dL Creatinine 1.11 H 0.550-1.02 mg/dL Glomerular Filtration Rate Calc 66 >90 mL/min BUN/Creatinine Ratio 7.2 L 10.0-20.0 Serum Glucose 123 H 74-106 mg/dL Calcium Level 10.1 8.7-10.4 mg/dL Total Bilirubin 0.3 0.2-1.0 mg/dL Aspartate Amino Transferase (AST) 11 L 13-40 U/L Alanine Aminotransferase (ALT) 12 7-40 U/L Alkaline Phosphatase 69 46-116 U/L B-Type Natriuretic Peptide 124.47 0-100 pg/mL Total Protein 7.4 5.7-8.2 g/dL Albumin 4.5 3.2-4.8 g/dL Beta HCG, Quantitative 0.9 L 1.5-4.2 mIU/mL D-Dimer, Quantitative 0.25 0.0-0.49 mg/L FEU Current Medications Medications (Trade) Dose Ordered Sig/Sharee Route Start Time Stop Time Status Last Admin Aspirin 324 mg ONCE ONCE PO 08/15/24 22:45 08/15/24 22:46 DC 08/15/24 23:18 Morphine Sulfate 2 mg ONCE ONCE IV 08/15/24 22:45 08/15/24 22:46 DC 08/15/24 23:19 Clonidine HCl (Catapres Tablet) 0.1 mg ONCE ONCE PO 08/16/24 00:30 08/16/24 00:31 DC 08/16/24 00:34 Time of 1ST Reevaluation: 22:50 Reevaluation 1ST: Unchanged Patient Education/Counseling: Diagnosis, Treatment Family Education/Counseling: No Family Present Departure 1 Departure Time of Disposition: 05:12 Impression: Primary Impression: Chest pain Additional Impressions: Elevated troponin Uncontrolled hypertension Disposition: ADMITTED INPATIENT Condition: Stable Comments Patient admitted for further treatment, evaluation and monitoring. Critical Care Note Critical Care Time?: No Stability Stability form required: No Heart Score Heart Score: Heart Score Response (Comments) Value History Moderate Suspicious 1 EKG Repolarization Disturb 1 Age <45 0 Risk Factors >3 or Hx ASHD 2 Troponin Normal limit 0 Total 4 I personally scribed for SARAH COLEMAN MD ([email or web address]) on 08/15/24 at 23:03. Electronically submitted by Jamarcus Lopez ([email or web address]). SARAH COLEMAN MD Aug 15, 2024 23:03
[2024-08-15 23:15] LABS: Basophils # (auto) 0.1 10 ^3/uL (0-0.2); Basophils % (auto) 1.6 % (0.0-2.0); Eosinophils # (auto) 0.2 10 ^3/uL (0-0.8); Eosinophils % (auto) 2.2 % (0.0-7.0); Hematocrit 31.2 % (36.0-46.0); Hemoglobin 10.1 g/dL (12.2-16.2); Lymphocytes # (auto) 3.8 10 ^3/uL (0.4-5.4); Lymphocytes % (auto) 41.9 % (10.0-50.0); Mean Corpuscular Hemoglobin 26.4 pg (28.0-32.0); Mean Corpuscular Hgb Conc. 32.4 g/dL (32.0-36.0); Mean Corpuscular Volume 81.4 fL (80.0-100.0); Monocytes # (auto) 0.7 10 ^3/uL (0-1.3); Monocytes % (auto) 7.9 % (0.0-12.0); Neutrophils # (auto) 4.2 10 ^3/uL (1.6-8.6); Neutrophils % (auto) 46.4 % (37.0-80.0); Nucleated Red Blood Cells % 0.1 %; Platelet Count (auto) 360 10^3/uL (140-450); Red Blood Cells 3.84 10^6/uL (4.0-5.20); Red Cell Distribution Width 20.2 % (11.8-14.3)
[2024-08-15] MEDS: ASPirin 81 mg TAB PO ONE (23:18)
[2024-08-15] MEDS: MORPHINE SULFATE INJ 2 MG/ml SYRG IV ONE (23:19)
[2024-08-15 23:33] LABS: Alanine Aminotransferase 12 U/L (7-40); Albumin 4.5 g/dL (3.2-4.8); Alkaline Phosphatase 69 U/L (46-116); Anion Gap 10 (5-15); BUN/Creatinine Ratio 7.2 (10.0-20.0); Calcium 10.1 mg/dL (8.7-10.4); Carbon Dioxide 24 mmol/L (20-31); Chloride 105 mmol/L (98-107); Potassium 3.7 mmol/L (3.5-5.1); Sodium 139 mmol/L (136-145); Total Protein 7.4 g/dL (5.7-8.2)
[2024-08-15 23:34] LABS: Aspartate Aminotransferase 11 U/L (13-40); Bilirubin, Total 0.3 mg/dL (0.2-1.0); Blood Urea Nitrogen 8 mg/dL (9-23); Glucose 123 mg/dL (74-106)
[2024-08-15 23:56] VITALS: PULSE 87; RESP 18; O2SAT 98
[2024-08-16] VITALS (8 sets, daily range): BP systolic 115–147; BP diastolic 70–87; PULSE 73–98; RESP 14–20; TEMP 97.9–98.5; O2SAT 97–99
[2024-08-16] MEDS: cloNIDine HCL 0.1 MG TAB PO ONE (00:34)
--- NOTE | 2024-08-16 02:22 | DVH ---
CHEST RADIOGRAPH Indication: Chest pain Technique: Single frontal view of the chest was obtained COMPARISON: XY CHEST PORTABLE on DOS: 08/09/24, XY CHEST PORTABLE on DOS: 03/13/24, XY CHEST PORTABLE on DOS: 02/21/24, CHEST PORTABLE on DOS: 01/20/21 FINDINGS: Lines and Tubes: None Lungs: Clear Pleura: No effusion. No pneumothorax. Cardiomediastinal contours: Unremarkable Bones: Unremarkable IMPRESSION: 1. No acute disease.
[2024-08-16] MEDS ORDERED: cloNIDine HCL 0.1 MG TAB PO PRN (02:45)
[2024-08-16] MEDS ORDERED: NITROGLYCERIN 0.4 MG SL TAB SL PRN (02:45)
[2024-08-16] MEDS ORDERED: MORPHINE SULFATE INJ 2 MG/ml SYRG IV PRN (02:45)
[2024-08-16] MEDS ORDERED: DOCUSATE SOD 100 MG CAP PO PRN (02:45)
[2024-08-16] MEDS: hydrALAZINE HCL 20 MG/ML VL IV PRN (03:14)
[2024-08-16] MEDS ORDERED: DEXTROSE (50%) 50ML SYRG IV PRN (03:45)
--- NOTE | 2024-08-16 03:55 | DVHHP2 ---
HOLLIS BOLANOS LOGGING OPERATIONS INSPECTOR 08/16/24 0355: History of Present Illness Reason for Visit: Chest pain History of Present Illness 51-year-old female with past medical history of DM, CHF, hypertension presents with complaints of chest pain x1 week. Chest pain worse than on day of arrival. Substernal radiating to the back 03/20. Also endorses shortness of breath. Patient was recently seen at this facility and admitted on August 09, 2024 however decided to leave against medical advice. Patient endorses marijuana use. At this time there are no complaints of fevers, chills, nausea, vomiting, leg swelling. Patient endorses her patent counsel is Dr. Kimball. Cardiovascular: CHF, HTN Endocrine: Diabetes Smoke: No ALCOHOL: occassional Drugs: Marijuana, Other (Tried ecstasy last month) Lives: with Family Review of Systems Constitutional: No: Fever, Chills, Sweats, Weakness, Malaise, Other Eyes: No: Pain, Vision change, Conjunctivae inflammation, Eyelid inflammation, Other, Redness ENT: No: Ear pain, Ear discharge, Nose pain, Nose discharge, Nose congestion, Mouth pain, Mouth swelling, Throat pain, Throat swelling, Other Respiratory: Shortness of breath; No: Cough, Dry, SOB with excertion, Wheezing, Hemoptysis, Pleuritic Pain, Sputum, Wheezing, Other Cardiovascular: Chest Pain; No: Palpitations, Orthopnea, Paroxysmal Noc. Dys pnea, Edema, Lt Headedness, Other Gastrointestinal: No: Nausea, Vomiting, Abdominal Pain, Diarrhea, Constipation, Melena, Hematochezia, Other Genitourinary: No Dysuria, No Frequency, No Incontinence, No Hematuria, No Retention, No Other Musculoskeletal: No: other, neck pain, shoulder pain, arm pain, back pain, hand pain, leg pain, foot pain Skin: No: Rash, Lesions, Jaundice, Bruising, Other Neurological: No: Weakness, Numbness, Incoordination, Change in speech, Confusion, Seizures, Other Allergies: Coded Allergies: NO KNOWN ALLERGIES (Unverified , 04/17/17) Medications Current Medications Medications Dose Ordered Sig/Sharee Route Start Time Stop Time Status Last Admin Dose Admin Docusate Sodium 100 mg BIDPRN PRN PO 08/16/24 02:45 Acetaminophen/ Hydrocodone Bitart 1 tab Q4HP PRN PO 08/16/24 02:45 Ondansetron HCl 4 mg Q4HP PRN IV 08/16/24 02:45 Morphine Sulfate 2 mg Q4HPRN PRN IV 08/16/24 02:45 Enoxaparin Sodium 40 mg DAILY SC 08/16/24 10:00 Nitroglycerin 0.4 mg Q5MINP PRN SL 08/16/24 02:45 Morphine Sulfate 2 mg Q30M PRN IV 08/16/24 02:45 Aspirin 81 mg DAILY PO 08/16/24 10:00 Atorvastatin Calcium 40 mg DAILY PO 08/16/24 10:00 Sacubitril/ Valsartan 1 tab BID PO 08/16/24 10:00 Metoprolol Succinate 50 mg DAILY PO 08/16/24 10:00 Clonidine HCl 0.1 mg Q8HPRN PRN PO 08/16/24 02:45 Hydralazine HCl 10 mg Q4HPRN PRN IV 08/16/24 02:45 08/16/24 03:14 10 MG Bumetanide 2 mg DAILY PO 08/16/24 10:00 Pantoprazole Sodium 40 mg DAILY IV 08/16/24 10:00 Diagnostic Test (Pha) 1 strip ACHS 08/16/24 07:00 Insulin Human Regular ACHS SC 08/16/24 07:00 Dextrose 50 ml UD PRN IV 08/16/24 03:45 Exam Vital Signs Vital Signs Date Time Temp Pulse Resp B/P (MAP) Pulse Ox O2 Delivery O2 Flow Rate FiO2 08/16/24 03:14 183/111 08/16/24 02:53 84 15 99 08/15/24 23:56 Room Air* 0 21 08/15/24 23:56 97.9 97.9 General Appearance: Alert, Oriented X3, Cooperative, mild distress HEENT: Atraumatic, PERRLA, EOMI Respiratory: Clear to auscultation, Normal air movement Cardiovascular: Regular rate, Normal S1, Normal S2 Abdominal: Normal bowel sounds, Soft, No tenderness Extremities: No clubbing, No cyanosis, No edema Skin: No rashes, No breakdown, No significant lesion Neuro: Normal speech Psych/Mental Status: Mental status NL, Mood NL Labs/Xrays Labs Test 08/16/24 01:35 08/15/24 22:52 08/15/24 22:50 Range/Units Troponin I High Sensitivity 57 *H </=34 ng/L White Blood Count 9.0 4.4-10.8 10^3/uL Red Blood Count 3.84 L 4.0-5.20 10^6/uL Hemoglobin 10.1 L 12.2-16.2 g/dL Hematocrit 31.2 #L 36.0-46.0 % Mean Corpuscular Volume 81.4 80.0-100.0 fL Mean Corpuscular Hemoglobin 26.4 L 28.0-32.0 pg Mean Corpuscular Hemoglobin Concent 32.4 32.0-36.0 g/dL Red Cell Distribution Width 20.2 H 11.8-14.3 % Platelet Count 360 140-450 10^3/uL Mean Platelet Volume 8.5 6.9-10.8 fL Neutrophils (%) (Auto) 46.4 37.0-80.0 % Lymphocytes (%) (Auto) 41.9 10.0-50.0 % Monocytes (%) (Auto) 7.9 0.0-12.0 % Eosinophils (%) (Auto) 2.2 0.0-7.0 % Basophils (%) (Auto) 1.6 0.0-2.0 % Neutrophils # (Auto) 4.2 1.6-8.6 10 ^3/uL Lymphocytes # (Auto) 3.8 0.4-5.4 10 ^3/uL Monocytes # (Auto) 0.7 0-1.3 10 ^3/uL Eosinophils # (Auto) 0.2 0-0.8 10 ^3/uL Basophils # (Auto) 0.1 0-0.2 10 ^3/uL Nucleated Red Blood Cells 0.1 % Sodium Level 139 136-145 mmol/L Potassium Level 3.7 3.5-5.1 mmol/L Chloride Level 105 98-107 mmol/L Carbon Dioxide Level 24 20-31 mmol/L Anion Gap 10 5-15 Blood Urea Nitrogen 8 L 9-23 mg/dL Creatinine 1.11 H 0.550-1.02 mg/dL Glomerular Filtration Rate Calc 66 >90 mL/min BUN/Creatinine Ratio 7.2 L 10.0-20.0 Serum Glucose 123 H 74-106 mg/dL Calcium Level 10.1 8.7-10.4 mg/dL Total Bilirubin 0.3 0.2-1.0 mg/dL Aspartate Amino Transferase (AST) 11 L 13-40 U/L Alanine Aminotransferase (ALT) 12 7-40 U/L Alkaline Phosphatase 69 46-116 U/L B-Type Natriuretic Peptide 124.47 0-100 pg/mL Total Protein 7.4 5.7-8.2 g/dL Albumin 4.5 3.2-4.8 g/dL Beta HCG, Quantitative 0.9 L 1.5-4.2 mIU/mL D-Dimer, Quantitative 0.25 0.0-0.49 mg/L FEU Assessment/Plan Assessment/Plan Chest pain Uncontrolled hypertension Elevated troponin Chronic CHF, estimated LVEF 40% March 2024 DM Obesity Plan Admit to telemetry Cardiology consult. Echocardiogram. As needed anti hypertensive for optimal BP management. Continue home medication. ASA, Statin. Serial troponin. Blood glucose check AC HS with regular insulin sliding scale coverage. GI ppx protonix / DVT ppx lovenox Plan discussed with: Patient My Orders Orders - HOLLIS BOLANOS NP Procedure Category Date Status Time Admit ADMIT 08/16/24 Transmitted 02:36 Code Status CODE 08/16/24 Transmitted 02:36 Vital Signs NOLVIA 08/16/24 In Process 02:36 Review Orders With NOLVIA 08/16/24 In Process Adm. 02:36 Encourage Activity As NOLVIA 08/16/24 In Process Tolerate 02:36 Consistent DIET 08/16/24 Transmitted Carb(Ccho)Diabetes Breakfast Oxygen By Face Mask RT 08/16/24 Transmitted 02:36 Docusate Sodium PHA 08/16/24 In Process Capsule (Colace 02:45 Notify Of Changes NOLVIA 08/16/24 In Process From Base 02:36 Advance Directive NOLVIA 08/16/24 In Process 02:36 Echo 2d Mode Cardiac US 08/16/24 Logged DOP 02:36 Basic Metabolic Panel LAB 08/16/24 Logged 05:00 Basic Metabolic Panel LAB 08/17/24 Verified 05:00 Basic Metabolic Panel LAB 08/18/24 Verified 05:00 Complete Blood Count LAB 08/16/24 Logged 05:00 Complete Blood Count LAB 08/17/24 Verified 05:00 Complete Blood Count LAB 08/18/24 Verified 05:00 Patient Condition ORDERS 08/16/24 Transmitted 02:36 Allergies NOLVIA 08/16/24 In Process 02:36 Hydrocodone-Acet PHA 08/16/24 In Process 5/325mg Tab ([place] 02:45 Ondansetron Hcl PHA 08/16/24 In Process (Zofran) 02:45 Morphine Sulfate PHA 08/16/24 In Process Injection 02:45 Enoxaparin Sodium PHA 08/16/24 In Process (Lovenox) 10:00 Nitroglycerin PHA 08/16/24 In Process Sublingual (Ntrostat 02:45 Morphine Sulfate PHA 08/16/24 In Process Injection 02:45 Stat Ekg For Chest NOLVIA 08/16/24 In Process Pain 02:36 Notify Of Changes NOLVIA 08/16/24 In Process From Base 02:36 Plastic Mould Maker For NOLVIA 08/16/24 In Process 24 Hours 02:36 Emergency Dysrhythmia NOLVIA 08/16/24 In Process Protocol 02:36 Rhythm Strips Once NOLVIA 08/16/24 In Process Every Shift 02:36 Oxygen By Nasal RT 08/16/24 Transmitted Cannula 02:36 * Cardiology Consult CONS 08/16/24 Transmitted 02:36 Aspirin Tablet PHA 08/16/24 In Process 10:00 Atorvastatin (Lipitor) PHA 08/16/24 In Process 10:00 Sacubitril-Valsartan PHA 08/16/24 In Process (Entresto 24-26 Mg 10:00 Metoprolol Xl PHA 08/16/24 In Process Succinate (Toprol Xl) 10:00 Clonidine Hcl Tablet PHA 08/16/24 In Process (Catapres Tablet) 02:45 Hydralazine Injection PHA 08/16/24 In Process (Apresoline Inject 02:45 Bumetanide Tablet PHA 08/16/24 In Process (Bumex Tablet) 10:00 Pantoprazole PHA 08/16/24 In Process (Protonix) 10:00 Glucose Blood PHA 08/16/24 In Process (Accu-Chek Comfort 07:00 Insulin R (Human) PHA 08/16/24 In Process (Insulin R) 07:00 Dextrose 50% Syringe PHA 08/16/24 In Process 03:45 Troponin-I Hs LAB 08/16/24 Transmitted 04:00 Troponin-I Hs LAB 08/16/24 Transmitted 10:00 Date of Service: Aug 16, 2024 Billing Provider: PRITI GELLER MD Common Visit Codes: NOT BILLABLE PRITI GELLER MD 08/16/24 1452: Review of Systems Allergies: Coded Allergies: NO KNOWN ALLERGIES (Unverified , 04/17/17) Assessment/Plan Assessment/Plan Patient's chart is reviewed and discussed with the nurse practitioner. I agree with the nurse practitioner's evaluation, documentation, assessment and care plan as outlined. Plan discussed with: Other HOLLIS BOLANOS NP Aug 16, 2024 03:55 PRITI GELLER MD Aug 16, 2024 14:52
[2024-08-16] MEDS: ONDANSETRON HCL 4 MG/2 ML VIAL IV PRN (04:26)
[2024-08-16 05:50] LABS: Urine Bacteria None Seen /hpf (None Seen)
--- NOTE | 2024-08-16 05:55 | ECG ---
[facility] Test Date: 2024-08-15 Test Time: 22:42:12 Pat Name: RAMESH MARRERO Department: ER Room: [address] [place] [address] Gender: F Social Media Specialist: JUDY : 1990 Requested By: SARAH COLEMAN Order Number: [id number] Reading MD: Richi Rico Measurements Intervals [place] Rate: 87 P: 46 RI: 183 QRS: 3 QRSD: 91 T: 62 QT: 422 QTc: 508 Interpretive Statements Sinus rhythm Probable left atrial enlargement Anterior infarct, old Electronically Signed On 08-16-2024 18:06:34 PST by Richi Rico Please click the below link to view image of tracing.
[2024-08-16 06:02] LABS: Basophils # (auto) 0.1 10 ^3/uL (0-0.2); Eosinophils # (auto) 0.2 10 ^3/uL (0-0.8); Lymphocytes # (auto) 2.2 10 ^3/uL (0.4-5.4); Monocytes # (auto) 0.5 10 ^3/uL (0-1.3)
[2024-08-16 06:04] LABS: Basophils % (auto) 1.2 % (0.0-2.0); Eosinophils % (auto) 2.1 % (0.0-7.0); Hematocrit 30.4 % (36.0-46.0); Hemoglobin 9.6 g/dL (12.2-16.2); Lymphocytes % (auto) 27.4 % (10.0-50.0); Mean Corpuscular Hemoglobin 25.9 pg (28.0-32.0); Mean Corpuscular Hgb Conc. 31.6 g/dL (32.0-36.0); Mean Corpuscular Volume 81.9 fL (80.0-100.0); Monocytes % (auto) 6.8 % (0.0-12.0); Neutrophils % (auto) 62.5 % (37.0-80.0); Platelet Count (auto) 340 10^3/uL (140-450); Red Blood Cells 3.72 10^6/uL (4.0-5.20); Red Cell Distribution Width 19.8 % (11.8-14.3); White Blood Cell 8.1 10^3/uL (4.4-10.8)
[2024-08-16 06:05] LABS: Urine Blood 1+ /uL (Negative); Urine Clarity Clear (Clear); Urine Color Light-Yellow (Yellow); Urine Hyaline Cast FEW /lpf (0 - 2); Urine Mucus FEW (None Seen); Urine Protein, UAD Negative (Negative); Urine Specific Gravity 1.018 (1.001-1.035); Urine Squamous Epithelial Cell FEW /hpf (<5); Urine Urobilinogen Normal (Negative); Urine WBC 1 /HPF (0-5); Urine pH 5.5 (5.0-9.0)
[2024-08-16 06:10] LABS: Chloride 106 mmol/L (98-107); Sodium 138 mmol/L (136-145)
[2024-08-16 06:11] LABS: Anion Gap 7 (5-15); Carbon Dioxide 25 mmol/L (20-31)
[2024-08-16 06:12] LABS: Calcium 9.2 mg/dL (8.7-10.4)
[2024-08-16 06:14] LABS: Cannabinoid Screen, Urine Pos (NEGATIVE); Opiate Scree,Urine Neg (NEGATIVE)
[2024-08-16 06:16] LABS: Amphetamine Screen, Urine Neg (NEGATIVE); Barbiturate Scree,Urine Neg (NEGATIVE); Benzodiazephine Screen, Urine Neg (NEGATIVE); Cocaine Screen, Urine Neg (NEGATIVE); Phencyclidine Screen, Urine Neg (NEGATIVE)
[2024-08-16 06:16] LABS: BUN/Creatinine Ratio 7.8 (10.0-20.0)
[2024-08-16] MEDS: ACCU-CHEK COMFORT CURVE STRIP VI SCH (06:19)
[2024-08-16 06:29] LABS: Blood Urea Nitrogen 9 mg/dL (9-23); Glucose 203 mg/dL (74-106); Potassium 3.2 mmol/L (3.5-5.1)
[2024-08-16] MEDS: InsuLIN REG 1unit/0.01ml Soln (100units/ml) SC SCH (06:34)
[2024-08-16] MEDS: ENOXAPARIN SOD 40 MG/0.4 ML SYRINGE SC SCH (09:33)
[2024-08-16] MEDS: PANTOPRAZOLE 40 MG/10 ML VIAL INJ IV SCH (09:33)
[2024-08-16] MEDS: BUMETANIDE 1 MG TAB PO SCH (09:34)
[2024-08-16] MEDS: SACUBITRIL-VALSARTAN 24mg/26mg TAB PO SCH (09:35)
[2024-08-16] MEDS: ATORVASTATIN 20 MG TAB PO SCH (09:35)
[2024-08-16] MEDS: ASPirin 81 mg TAB PO SCH (09:36)
[2024-08-16] MEDS: METOPROLOL SUCCINATE XL 50 MG TAB PO SCH (09:36)
[2024-08-16] MEDS: MORPHINE SULFATE INJ 2 MG/ml SYRG IV PRN (10:07)
[2024-08-16] MEDS: HYDROcodone-ACET 5/325MG TAB PO PRN (13:49)
--- NOTE | 2024-08-16 14:51 | DVHINCON2 ---
Date of service: Aug 16, 2024 History of Present Illness 34 yo F with hx of mild cad on cath, hx of chf with mild moderate lv dysfunction admitted for chest pain and severe HTN. Past Medical History reviewed Family History: Diabetes mellitus G8 MOTHER G8 FATHER FH: heart disease G8 MOTHER Allergies: Coded Allergies: NO KNOWN ALLERGIES (Unverified , 04/17/17) Home Meds Active Scripts Potassium Chloride (POTASSIUM CHLORIDE CR) 10 Meq Tb, 1 TAB PO DAILY, #30 TAB 0 Refills Prov:DREW MARQUEZ MD 03/16/24 Bumetanide (Bumetanide) 2 Mg Tab, 1 TAB PO DAILY PRN, #30 TAB 0 Refills Prov:DREW MARQUEZ MD 03/16/24 Pantoprazole Sodium Sesquihydr (Pantoprazole Sodium) 40 Mg Tab, 40 MG PO DAILY for 30 Days, #30 TAB Prov:DREW MARQUEZ MD 03/16/24 Sacubitril-Valsartan (Entresto 24-26 mg) 1 Tab Tab, 1 TAB PO DAILY for 30 Days, #30 TAB 3 Refills Prov:DUNNEMARIA G Marcano Jovita DO 02/24/24 Nifedipine (Nifedipine ER) 30 Mg Tab, 30 MG PO DAILY for 30 Days, #30 TAB 3 Refills Prov:DUNNEMARIA G Jovita DO 02/24/24 Metoprolol Succinate (Toprol Xl) 50 Mg Tab, 25 MG PO DAILY for 30 Days, #15 TAB 3 Refills Prov:DUNNEMARTHAMARIA G Jovita DO 02/24/24 Empagliflozin (Jardiance) 10 Mg Tab, 10 MG PO DAILY for 30 Days, #30 TAB 3 Refills Prov:DUNNEMARTHAMARIA G Jovita DO 02/24/24 Atorvastatin Calcium (ATORVASTATIN CALCIUM) 20 Mg Tab, 40 MG PO HS for 30 Days, #60 TAB 3 Refills Prov:MARTHA DUNNEMY Jovita DO 02/24/24 Atorvastatin Calcium (Lipitor) 40 Mg Tab, 1 TAB PO QPM, #90 TAB 1 Refill Prov:PRITI GELLER MD 10/13/23 Sacubitril-Valsartan (Entresto 24-26 mg) 1 Tab Tab, 1 TAB PO BID, #60 TAB 1 Refill Prov:PRITI GELLER MD 10/13/23 Aspirin (Aspirin Low Dose) 81 Mg Tab, 81 MG PO DAILY, #60 TAB Prov:PRITI GELLER MD 10/13/23 Current Medications Current Medications Medications (Trade) Dose Ordered Sig/Sharee Route PRN Reason Start Time Stop Time Status Last Admin Docusate Sodium (Colace Capsule) 100 mg BIDPRN PRN PO FOR CONSTIPATION 08/16/24 02:45 Acetaminophen/ Hydrocodone Bitart ([place] 5/325MG Tab) 1 tab Q4HP PRN PO MODERATE PAIN (4-6 PAIN SCALE) 08/16/24 02:45 08/16/24 13:49 Ondansetron HCl (Zofran) 4 mg Q4HP PRN IV NAUSEA / VOMITING 08/16/24 02:45 08/16/24 04:26 Morphine Sulfate 2 mg Q4HPRN PRN IV SEVERE PAIN (7-10 PAIN SCALE) 08/16/24 02:45 08/16/24 10:07 Enoxaparin Sodium (Lovenox) 40 mg DAILY SC 08/16/24 10:00 08/16/24 09:33 Nitroglycerin (Ntrostat Sublingual) 0.4 mg Q5MINP PRN SL FOR CHEST PAIN 08/16/24 02:45 Morphine Sulfate 2 mg Q30M PRN IV FOR CHEST PAIN 08/16/24 02:45 Aspirin 81 mg DAILY PO 08/16/24 10:00 08/16/24 09:36 Atorvastatin Calcium (Lipitor) 40 mg DAILY PO 08/16/24 10:00 08/16/24 09:35 Sacubitril/ Valsartan (Entresto 24-26 Mg tab) 1 tab BID PO 08/16/24 10:00 08/16/24 09:35 Metoprolol Succinate (Toprol Xl) 50 mg DAILY PO 08/16/24 10:00 08/16/24 09:36 Clonidine HCl (Catapres Tablet) 0.1 mg Q8HPRN PRN PO SBP > 180 08/16/24 02:45 Hydralazine HCl (Apresoline Injection) 10 mg Q4HPRN PRN IV SBP > 160 08/16/24 02:45 08/16/24 08:18 Bumetanide (Bumex Tablet) 2 mg DAILY PO 08/16/24 10:00 08/16/24 09:34 Pantoprazole Sodium (Protonix) 40 mg DAILY IV 08/16/24 10:00 08/16/24 13:44 DC 08/16/24 09:33 Diagnostic Test (Pha) (Accu-Chek Comfort Curve T) 1 strip ACHS 08/16/24 07:00 08/16/24 12:04 Insulin Human Regular (InsuLIN R) ACHS SC 08/16/24 07:00 08/16/24 12:15 Dextrose 50 ml UD PRN IV Blood Sugar LESS THAN 60 08/16/24 03:45 Potassium Chloride (Klor-Con Tablet) 10 meq BID PO 08/16/24 22:00 Review of Systems 10 pt ros otherwise negative Vital Signs Vital Signs Date Time Temp Pulse Resp B/P (MAP) Pulse Ox O2 Delivery O2 Flow Rate FiO2 08/16/24 13:30 98.2 79 16 115/70 (85) 99 98.2 08/16/24 07:30 Room Air* 0 21 Physical Exam nad s1 s2 rrr ctab soft nt/nd no edema Labs/Diagnostic Data Labs Test 08/16/24 11:59 08/16/24 10:14 08/16/24 05:49 08/16/24 05:35 Range/Units POC Glucose 249 H 70-106 mg/dl Troponin I High Sensitivity 48 *H </=34 ng/L Urine Color Light-yellow Yellow Urine Clarity Clear Clear Urine pH 5.5 5.0-9.0 Urine Specific [place] 1.018 1.001-1.035 Urine Protein Negative Negative Urine Ketones Negative Negative Urine Blood 1+ H Negative /uL Urine Nitrite Negative Negative Urine Bilirubin Negative Negative Urine Urobilinogen Normal Negative mg/dL Urine Leukocyte Esterase Negative Negative /uL Urine RBC 4 0 - 4 /hpf Urine Microscopic WBC 1 0-5 /HPF Urine Squamous Epithelial Cells Few <5 /hpf Urine Bacteria None seen None Seen /hpf Urine Hyaline Casts Few 0 - 2 /lpf Urine Mucus Few None Seen Urine Glucose 1+ H Normal mg/dL Urine Test Negative Negative Urine Opiates Screen Neg NEGATIVE Urine Fentanyl Screen Neg NEGATIVE Urine Barbiturates Screen Neg NEGATIVE Urine Phencyclidine Screen Neg NEGATIVE Urine Amphetamines Screen Neg NEGATIVE Urine Benzodiazepines Screen Neg NEGATIVE Urine Cocaine Screen Neg NEGATIVE Urine Cannabinoids Screen Pos NEGATIVE White Blood Count 8.1 4.4-10.8 10^3/uL Red Blood Count 3.72 L 4.0-5.20 10^6/uL Hemoglobin 9.6 L 12.2-16.2 g/dL Hematocrit 30.4 L 36.0-46.0 % Mean Corpuscular Volume 81.9 80.0-100.0 fL Mean Corpuscular Hemoglobin 25.9 L 28.0-32.0 pg Mean Corpuscular Hemoglobin Concent 31.6 L 32.0-36.0 g/dL Red Cell Distribution Width 19.8 H 11.8-14.3 % Platelet Count 340 140-450 10^3/uL Mean Platelet Volume 8.5 6.9-10.8 fL Neutrophils (%) (Auto) 62.5 37.0-80.0 % Lymphocytes (%) (Auto) 27.4 10.0-50.0 % Monocytes (%) (Auto) 6.8 0.0-12.0 % Eosinophils (%) (Auto) 2.1 0.0-7.0 % Basophils (%) (Auto) 1.2 0.0-2.0 % Neutrophils # (Auto) 5.0 1.6-8.6 10 ^3/uL Lymphocytes # (Auto) 2.2 0.4-5.4 10 ^3/uL Monocytes # (Auto) 0.5 0-1.3 10 ^3/uL Eosinophils # (Auto) 0.2 0-0.8 10 ^3/uL Basophils # (Auto) 0.1 0-0.2 10 ^3/uL Nucleated Red Blood Cells 0.0 % Sodium Level 138 136-145 mmol/L Potassium Level 3.2 L 3.5-5.1 mmol/L Chloride Level 106 98-107 mmol/L Carbon Dioxide Level 25 20-31 mmol/L Anion Gap 7 5-15 Blood Urea Nitrogen 9 9-23 mg/dL Creatinine 1.15 H 0.550-1.02 mg/dL Glomerular Filtration Rate Calc 63 >90 mL/min BUN/Creatinine Ratio 7.8 L 10.0-20.0 Serum Glucose 203 H 74-106 mg/dL Calcium Level 9.2 8.7-10.4 mg/dL Test 08/15/24 22:52 08/15/24 22:50 Range/Units Total Bilirubin 0.3 0.2-1.0 mg/dL Aspartate Amino Transferase (AST) 11 L 13-40 U/L Alanine Aminotransferase (ALT) 12 7-40 U/L Alkaline Phosphatase 69 46-116 U/L B-Type Natriuretic Peptide 124.47 0-100 pg/mL Total Protein 7.4 5.7-8.2 g/dL Albumin 4.5 3.2-4.8 g/dL Beta HCG, Quantitative 0.9 L 1.5-4.2 mIU/mL D-Dimer, Quantitative 0.25 0.0-0.49 mg/L FEU Assessment severe HTN mild cad CHF with class II hf , ckd obesity morbid Plan/Recommendation trop prob 2/2 to HF and htn cont bp control start GDMT, BB, arb, aldactone and jardiance dc home when stable fu dr castrejon signing off Plan discussed with: Patient MCGUIREDYLAN MD Aug 16, 2024 14:51
--- NOTE | 2024-08-16 15:24 | DVHSR ---
APPROVED REPORT EXAM: Two-dimensional and M-mode echocardiogram with Doppler and color Doppler. Blood Pressure: 167/97 mmHg INDICATION elevated troponin RISK FACTORS Obesity: Height: 5'1, Weight: 187 DIMENSIONS LVDd4.2 (3.8-5.7cm)LA (2D)4.1 (1.9-4.0cm)Aortic Root3.3 (2.0-3.7cm) LVDs3.3 (2.5-4.0cm)LA (MM) (1.9-4.0cm)Aortic Cusp Exc1.4 (1.5-2.0cm) EF (%) 43.0 (55-70%)Rt. Atrium (1.9-4.0cm)Asc. Aorta3.4 cm IVSd1.2 (0.7-1.1cm)RV (D) (1.8-2.4cm) PWd1.6 (0.7-1.1cm) Mitral Valve MitralMitral Stenosis E wave0.69m/sMV Mean GR.mmHg A wave1.09m/sMV Peak GR.mmHg E/A ratio0.62D MVAcm2 DECEL [id number] 1/2 [place] Aortic Valve Aortic ValveAortic Stenosis V11.12m/Lu Mean GR.7mmHg V21.61m/Lu Peak GR.10mmHg LVOT Diameter2.0 (1.8-2.4cm)Doppler AVA2.18cm2 Pulmonic Valve V21.20m/s Other Information Quality : Technically LimitedRhythm : Technically limited study due to patient position.body habitus. Conclusion lvef 45% sevee conctric lvh left atrium enlarged
[2024-08-16] MEDS: POTASSIUM CHL 10 Meq TABLET PO SCH (22:01)
[2024-08-17 05:00] VITALS: BP 100/54; PULSE 58; RESP 16; TEMP 97.9; O2SAT 97
[2024-08-17 06:11] LABS: Basophils # (auto) 0.1 10 ^3/uL (0-0.2); Eosinophils # (auto) 0.2 10 ^3/uL (0-0.8); Eosinophils % (auto) 2.1 % (0.0-7.0); Hematocrit 29.1 % (36.0-46.0); Hemoglobin 9.6 g/dL (12.2-16.2); Lymphocytes # (auto) 3.5 10 ^3/uL (0.4-5.4); Lymphocytes % (auto) 37.9 % (10.0-50.0); Monocytes # (auto) 0.7 10 ^3/uL (0-1.3); Monocytes % (auto) 7.4 % (0.0-12.0); Neutrophils # (auto) 4.7 10 ^3/uL (1.6-8.6); Neutrophils % (auto) 51.6 % (37.0-80.0); Nucleated Red Blood Cells % 0.1 %; Platelet Count (auto) 349 10^3/uL (140-450); Red Blood Cells 3.55 10^6/uL (4.0-5.20); Red Cell Distribution Width 20.2 % (11.8-14.3); White Blood Cell 9.1 10^3/uL (4.4-10.8)
[2024-08-17 06:24] LABS: Calcium 9.8 mg/dL (8.7-10.4); Chloride 101 mmol/L (98-107); Potassium 3.7 mmol/L (3.5-5.1); Sodium 138 mmol/L (136-145)
[2024-08-17 06:25] LABS: Anion Gap 11 (5-15); Carbon Dioxide 26 mmol/L (20-31)
[2024-08-17 06:30] LABS: BUN/Creatinine Ratio 10.8 (10.0-20.0); Blood Urea Nitrogen 20 mg/dL (9-23)
[2024-08-17 06:37] LABS: Glucose 154 mg/dL (74-106)
[2024-08-17 08:00] VITALS: PULSE 75; PULSE 77; RESP 16; O2SAT 99
[2024-08-17 08:30] VITALS: BP 134/80; PULSE 75; RESP 16; TEMP 98.2; O2SAT 99
[2024-08-17 12:52] VITALS: BP 125/75; PULSE 69; RESP 16; TEMP 98.1; O2SAT 98
[2024-08-17 16:44] VITALS: BP 116/78; PULSE 76; RESP 17; TEMP 98.5; O2SAT 99
[2024-08-17] MEDS ORDERED: BUME2TAB5 PO (17:01)
[2024-08-17] MEDS ORDERED: [UNRECOGNIZED DRUG - CODE] XX (17:01)
[2024-08-17] MEDS ORDERED: BLOO1KIT54 XX (17:01)
--- NOTE | 2024-08-17 17:03 | DVHDS2 ---
Discharge Summary Date of Admission Aug 16, 2024 at 02:36 Date of Discharge: Aug 17, 2024 Labs/Diagnostic Data: Laboratory Results Test 08/17/24 16:22 08/17/24 05:47 08/16/24 10:14 08/16/24 05:49 POC Glucose 177 mg/dl (70-106) White Blood Count 9.1 10^3/uL (4.4-10.8) Red Blood Count 3.55 10^6/uL (4.0-5.20) Hemoglobin 9.6 g/dL (12.2-16.2) Hematocrit 29.1 % (36.0-46.0) Mean Corpuscular Volume 82.0 fL (80.0-100.0) Mean Corpuscular Hemoglobin 27.0 pg (28.0-32.0) Mean Corpuscular Hemoglobin Concent 33.0 g/dL (32.0-36.0) Red Cell Distribution Width 20.2 % (11.8-14.3) Platelet Count 349 10^3/uL (140-450) Mean Platelet Volume 8.3 fL (6.9-10.8) Neutrophils (%) (Auto) 51.6 % (37.0-80.0) Lymphocytes (%) (Auto) 37.9 % (10.0-50.0) Monocytes (%) (Auto) 7.4 % (0.0-12.0) Eosinophils (%) (Auto) 2.1 % (0.0-7.0) Basophils (%) (Auto) 1.0 % (0.0-2.0) Neutrophils # (Auto) 4.7 10 ^3/uL (1.6-8.6) Lymphocytes # (Auto) 3.5 10 ^3/uL (0.4-5.4) Monocytes # (Auto) 0.7 10 ^3/uL (0-1.3) Eosinophils # (Auto) 0.2 10 ^3/uL (0-0.8) Basophils # (Auto) 0.1 10 ^3/uL (0-0.2) Nucleated Red Blood Cells 0.1 % Sodium Level 138 mmol/L (136-145) Potassium Level 3.7 mmol/L (3.5-5.1) Chloride Level 101 mmol/L (98-107) Carbon Dioxide Level 26 mmol/L (20-31) Anion Gap 11 (5-15) Blood Urea Nitrogen 20 mg/dL (9-23) Creatinine 1.85 mg/dL (0.550-1.02) Glomerular Filtration Rate Calc 36 mL/min (>90) BUN/Creatinine Ratio 10.8 (10.0-20.0) Serum Glucose 154 mg/dL (74-106) Calcium Level 9.8 mg/dL (8.7-10.4) Troponin I High Sensitivity 48 ng/L (</=34) Urine Color Light-yellow (Yellow) Urine Clarity Clear (Clear) Urine pH 5.5 (5.0-9.0) Urine Specific [place] 1.018 (1.001-1.035) Urine Protein Negative (Negative) Urine Ketones Negative (Negative) Urine Blood 1+ /uL (Negative) Urine Nitrite Negative (Negative) Urine Bilirubin Negative (Negative) Urine Urobilinogen Normal mg/dL (Negative) Urine Leukocyte Esterase Negative /uL (Negative) Urine RBC 4 /hpf (0 - 4) Urine Microscopic WBC 1 /HPF (0-5) Urine Squamous Epithelial Cells Few /hpf (<5) Urine Bacteria None seen /hpf (None Seen) Urine Hyaline Casts Few /lpf (0 - 2) Urine Mucus Few (None Seen) Urine Glucose 1+ mg/dL (Normal) Urine Test Negative (Negative) Urine Opiates Screen Neg (NEGATIVE) Urine Fentanyl Screen Neg (NEGATIVE) Urine Barbiturates Screen Neg (NEGATIVE) Urine Phencyclidine Screen Neg (NEGATIVE) Urine Amphetamines Screen Neg (NEGATIVE) Urine Benzodiazepines Screen Neg (NEGATIVE) Urine Cocaine Screen Neg (NEGATIVE) Urine Cannabinoids Screen Pos (NEGATIVE) Test 08/15/24 22:52 08/15/24 22:50 Total Bilirubin 0.3 mg/dL (0.2-1.0) Aspartate Amino Transferase (AST) 11 U/L (13-40) Alanine Aminotransferase (ALT) 12 U/L (7-40) Alkaline Phosphatase 69 U/L (46-116) B-Type Natriuretic Peptide 124.47 pg/mL (0-100) Total Protein 7.4 g/dL (5.7-8.2) Albumin 4.5 g/dL (3.2-4.8) Beta HCG, Quantitative 0.9 mIU/mL (1.5-4.2) D-Dimer, Quantitative 0.25 mg/L FEU (0.0-0.49) Other Laboratory Tests 08/17/24 05:47 Brief Hx & Hospital Course: 34 year old female came to ER via EMS due to chest pains. Patient has history of hypertension, diabetes and ID. Was seen here last August 09, diagnosed with ID but patient left AMA. Patient still experiencing intermittent episodes of chest pain that worsened few hours ago, substernal chest pains, pressure, constant, radiating to the back and associated with shortness of breath. Blood pressure on scene was 191/117 mmHg. She is admitted and evaluated by pattern keeper and had an echocardiogram showed ejection fraction 45%. Patient counseled and educated regarding her heart failure and heart problems and advised to be compliant with the her medications. Patient underwent a CHF education started on Bumex 2 mg daily and advised to continue at home. She was also advised to limit her oral fluid intake to 1.5 L per day and to check her weights daily. If she gains more than 3 lb of weight and awake advised to take extra dose of Bumex and to notify her doctor. Meantime patient is also prescribed blood pressure cuff as well as wearing admission. Otherwise while in the hospital overall patient clinically feeling better post diuresis and requesting to be in go home. Therefore it is felt she could be safely discharged home with close outpatient follow up as mentioned. I have talked with the patient regarding her heart failure, hospital diagnosis, treatment she received, discharge medications and instructions as well as follow-up plan of care. She has verbalized understanding of these and agree with care plan as mentioned. Consults/Reason for consult Assessment severe HTN mild cad CHF with class II hf , ckd obesity morbid Plan/Recommendation trop prob 2/2 to HF and htn cont bp control start GDMT, BB, arb, aldactone and jardiance dc home when stable fu dr castrejon signing off Plan discussed with: Patient DYLAN MCGUIRE MD Aug 16, 2024 14:51 Operations or Procedures EXAM: Two-dimensional and M-mode echocardiogram with Doppler and color Doppler. Blood Pressure: 167/97 mmHg INDICATION elevated troponin RISK FACTORS Obesity: Height: 5'1, Weight: 187 DIMENSIONS LVDd 4.2 (3.8-5.7cm) LA (2D) 4.1 (1.9-4.0cm) Aortic Root 3.3 (2.0- 3.7cm) LVDs 3.3 (2.5-4.0cm) LA (MM) (1.9-4.0cm) Aortic Cusp Exc 1.4 (1.5- 2.0cm) EF (%) 43.0 (55-70%) Rt. Atrium (1.9-4.0cm) Asc. Aorta 3.4 cm IVSd 1.2 (0.7-1.1cm) RV (D) (1.8-2.4cm) PWd 1.6 (0.7-1.1cm) Mitral Valve Mitral Mitral Stenosis E wave 0.69m/s MV Mean GR. mmHg A wave 1.09m/s MV Peak GR. mmHg E/A ratio 0.6 2D MVA cm2 DECEL Time 103ms PRESS 1/2 Time ms Aortic Valve Aortic Valve Aortic Stenosis V1 1.12m/s AO Mean GR. 7mmHg V2 1.61m/s AO Peak GR. 10mmHg LVOT Diameter 2.0 (1.8-2.4cm) Doppler VINCENT 2.18cm2 Pulmonic Valve V2 1.20m/s Other Information Quality : Technically Limited Rhythm : Technically limited study due to patient position.body habitus. Conclusion lvef 45% sevee conctric lvh left atrium enlarged Condition at Discharge: Stable Final Diagnosis/Problems List End-stage heart failure, cardiomyopathy Discharge Disposition: Home Discharge Instruct/Medications Diet: Consistent carbohydrate, Cardiac 2g Na,low cholest Diet comment: Oral fluid restriction to 1200 mL per 24 hours. Activity: No Restrictions, As Tolerated Follow Up/Referral: Dr. Layton pattern keeper in two weeks and primary care next week for heart failure management and blood pressure managed Medications: As per discharge medication list New Medications: Misc. Devices (Blood Pressure Monitor) Monitor Kit KIT XX DAILY, #1 Misc. Devices (Gnp Digital Weight Scale) 1 Mis Mis MIS XX DAILY, #1 Changed Medications: Bumetanide (Bumetanide) 2 Mg Tab 1 TAB PO DAILY, #30 TAB 0 Refills (Changed from: Removed Reason) Continued Medications: Aspirin (Aspirin Low Dose) 81 Mg Tab 81 MG PO DAILY, #60 TAB Atorvastatin Calcium (Lipitor) 40 Mg Tab 1 TAB PO QPM, #90 TAB 1 Refill Empagliflozin (Jardiance) 10 Mg Tab 10 MG PO DAILY for 30 Days, #30 TAB 3 Refills Metoprolol Succinate (Toprol Xl) 50 Mg Tab 25 MG PO DAILY for 30 Days, #15 TAB 3 Refills Nifedipine (Nifedipine ER) 30 Mg Tab 30 MG PO DAILY for 30 Days, #30 TAB 3 Refills Pantoprazole Sodium Sesquihydr (Pantoprazole Sodium) 40 Mg Tab 40 MG PO DAILY for 30 Days, #30 TAB Potassium Chloride (Potassium Chloride Cr) 10 Meq Tb 1 TAB PO DAILY, #30 TAB 0 Refills Sacubitril-Valsartan (Entresto 24-26 mg) 1 Tab Tab 1 TAB PO DAILY for 30 Days, #30 TAB 3 Refills Discontinued Medications: Atorvastatin Calcium (Atorvastatin Calcium) 20 Mg Tab 40 MG PO HS for 30 Days, #60 TAB 3 Refills Sacubitril-Valsartan (Entresto 24-26 mg) 1 Tab Tab 1 TAB PO BID, #60 TAB 1 Refill Discharge Statement: "Patient was advised to return to the ER or call 911 if any headaches, dizziness, shortness of breath, chest pain, abdominal pain, bleeding, fevers, or worsening of medical condition. Patient was counseled about treatment plan, medications, possible side effects, patientverbalized understanding. All questions were answered to the best of my ability. This discharge took greater then 30 minutes in planning, reviewing documentation, counseling the patient, and discussing with other team members." ASSESSMENT ASSESSMENT Assessment End-stage heart failure, cardiomyopathy PRITI GELLER MD Aug 17, 2024 17:03
[2024-08-17 17:07] VITALS: BP 116/78; PULSE 76; RESP 17; TEMP 98.5; O2SAT 99
--- NOTE | 2024-08-19 08:23 | ECG ---
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
--- NOTE | 2024-08-19 08:32 | ECG ---
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
== END 2024-08-17 17:40 | disposition home or self-care (01) | DRG 190 ==
LOC: EDBD 22:38 → ER 22:38 → OVERFLOW 08-16 02:36 → EAST 08-16 18:05 → TELE-EAST 08-17 09:00
PROVIDERS: ADMIT Nurse Practitioner Family; ATTEND Nurse Practitioner Family
DX: R07.89 Other chest pain (principal); I21.A1 Myocardial infarction type 2; I13.0 Hypertensive heart and chronic kidney disease with heart failure and stage 1 through stage 4 chronic kidney disease, or unspecified chronic kidney disease; I42.9 Cardiomyopathy, unspecified; E11.22 Type 2 diabetes mellitus with diabetic chronic kidney disease; I25.10 Atherosclerotic heart disease of native coronary artery without angina pectoris; E66.01 Morbid (severe) obesity due to excess calories; N18.9 Chronic kidney disease, unspecified; I50.84 End stage heart failure; F17.210 Nicotine dependence, cigarettes, uncomplicated; Z86.73 Personal history of transient ischemic attack (TIA), and cerebral infarction without residual deficits; Z79.899 Other long term (current) drug therapy; Z83.3 Family history of diabetes mellitus; Z68.35 Body mass index [BMI] 35.0-35.9, adult; Z79.84 Long term (current) use of oral hypoglycemic drugs; Z79.82 Long term (current) use of aspirin
CPT/HCPCS: 36415; 71045; 80048; 80053; 80307; 81001; 81025; 82962; 83880; 84484; 84702; 85025; 85379; 87081; 93005; 93306; 96374; 96375; G0378; J1815; J2405; J2470

== ENCOUNTER 2024-09-22 09:29 | Emergency (ER) | payer MEDICAID, OTHER ==
[~2024-09-22] VITALS: Ht 167.6 cm; Wt 81.3 kg
[~2024-09-22 09:29] MED LIST changes: -ATOR20TA50 PO; +BLOO1KIT54 XX; +[UNRECOGNIZED DRUG - CODE] XX
[2024-09-22] MEDS: ACETAMINOPHEN 325 MG TAB PO ONE (10:00)
[2024-09-22] MEDS: diphenhdrAMINE HCL 50 MG/1 ML VL IV ONE (10:00)
[2024-09-22] MEDS: METOCLOPRAMIDE HCL 5MG/ml INJ 2ml VIAL IV ONE (10:00)
[2024-09-22] MEDS: SODIUM CHLORIDE 0.9% 1,000 ML IV ONE (10:00)
--- NOTE | 2024-09-22 10:01 | ED.PDOC ---
HPI (NEURO) HPI Comments 34 y.o female with a PMHx of HTN, hyperlipidemia and DM, presents to the ED for a chief complaint of a 2 day history of nausea, vomiting, frontal headache associated with new onset neck pain today. Patient reports head and neck pain is sharp in nature, constant, and worsens with movement. Patient denies any fever, chills, chest pain, SOB, recent falls, trauma, sick contact, or dizziness. Chief Complaint: Neck Pain Time Seen by MD: 09:53 Reviewed Notes: Nurses Notes, Medications, Allergies Information Source: Patient Mode of Arrival: EMS Severity: Moderate Headache Severity: Worst Headache of life Timing: Hours Duration: Since onset Headache Location: Frontal Onset: At rest Circumstances: Spontaneous Symptoms: None History of: Hypertension Modifying factors: Nothing Associated Signs and Symptoms: Headache, Nausea, Vomiting, Neck Pain Past Medical History PAST MEDICAL HISTORY: DM, High Lipids, HTN Surgical History: Denies all surgeries FINANCIAL ENGINEER History: No Pertinent FINANCIAL ENGINEER History Family History Family History: Reviewed,noncontributory to illness Social History Smoker: Non-Smoker Alcohol: Denies ETOH Use Drugs: Denies Drug Use Lives In: Home Constitutional: denies: chills, diaphoresis, fatigue, fever, malaise, sweats, weakness, others EENTM: denies: blurred vision, double vision, ear bleeding, ear discharge, ear drainage, ear pain, ear ringing, eye pain, eye redness, hearing loss, mouth pa in, mouth swelling, nasal discharge, nose bleeding, nose congestion, nose pain, photophobia, tearing, throat pain, throat swelling, voice changes, others Respiratory: denies: cough, hemoptysis, orthopnea, SOB at rest, shortness of breath, SOB with excertion, stridor, wheezing, others Cardiovascular: denies: chest pain, dizzy spells, diaphoresis, Dyspnea on exertion, edema, irregular heart beat, left arm pain, lightheadedness, palpitations, PND, syncope, others Gastrointestinal: reports: nausea, vomiting; denies: abdomen distended, abdominal pain, blood streaked bowels, constipated, diarrhea, dysphagia, difficulty swallowing, hematemesis, melena, poor appetite, poor fluid intake, rectal bleeding, rectal pain, others Genitourinary: denies: abnormal vagina bleeding, burning, dyspareunia, dysuria, flank pain, frequency, hematuria, incontinence, pain, , vagina discharge, urgency, others Neurological: reports: headache; denies: dizziness, fainting, left sided num bness, left sided weakness, numbness, paresthesia, pre-existing deficit, right sided numbness, right sided weakness, seizure, speech problems, tingling, tremors, weakness, others Musculoskeletal: reports: neck pain; denies: back pain, gout, joint pain, joint swelling, muscle pain, muscle stiffness, others Integumetry: denies: bruises, change in color, change in hair/nails, dryness, laceration, lesions, lumps, rash, wounds, others Allergic/Immunocompromised: denies: Difficulty Healing, Frequent Infections, Hives, Itching, others Hematologic/Lymphatic: denies: anemia, blood clots, easy bleeding, easy bruising, swollen glands, others Endocrine: denies: excessive hunger, excessive sweating, excessive thirst, excessive urination, flushing, intolerance to cold, intolerance to heat, unexplained weight gain, unexplained weight loss, others Psychiatric: denies: anxiety, bipolar disorder, depression, hopeless, panic disorder, schizophrenia, sleepless, suicidal, others All Other Systems: Reviewed and Negative Physical Exam General Appearance: Other (appears uncomfortable ) HEENT: NOT DONE Neck: Normal Inspection Respiratory: No Accessory Muscle Use, No Respiratory Distress, Normal Breath Sounds Cardiovascular: Normal Peripheral Pulses, Regular Rate/Rhythm Breast Exam: Deferred Gastrointestinal: NOT DONE Genitalia: Deferred Pelvic: Deferred Rectal: Deferred Extremities: Normal inspection Neurologic: Alert, Headache, Normal Affect Cerebellar Function: Unable to Test Reflexes: NOT DONE Skin: Dry, Normal Color Lymphatic: NOT DONE Was a procedure done? 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 Indication: Hypotension, Volume resuscitation Room prepared for procedure: Yes Fisheries Specialist performed hand hygien: Yes Maximal sterile barrier precau: Mask/Eye shield, Sterile gown, Sterlie gloves, Large sterlie drape Skin Preparation: Chlorhexidine gluconate Skin preparation completely dr: Yes Insertion site: Right, Femoral Central line catheter type: [id number]-ewd dialysis Number of lumens: 3 Central line exchanged over a: Yes Antiseptic ointment applied to: Yes Post Assessment: Proper placement Informed consent obtained: No Risks/benefits/alt described: No Intubation Indication: Altered Mental Status, Airway Protection Prep: Preoxygenation Pretreated with: Other (Versed) Medicated with: Other (Rocuronium) Intubation Approach: Orotracheal Intubation size: cm (8) Informed consent obtained: No Risks/benefits/alt described: No Differential Diagnosis (SZ) Seizure: N/A CVA: TIA Headache: Cluster, Migraine, CVA, Subarachnoid Hemorrhage X-Ray, Labs, Meds, VS Vital Signs Date Time Temp Pulse Resp B/P (MAP) Pulse Ox O2 Delivery O2 Flow Rate FiO2 09/22/24 12:15 113 24 156/86 (109) 100 40 09/22/24 12:07 116 09/22/24 12:05 98.8 112 24 126/74 (91) 100 98.8 09/22/24 12:00 112 24 128/80 (96) 100 09/22/24 11:55 112 24 129/83 (98) 100 09/22/24 11:50 132 24 172/97 (122) 100 09/22/24 11:46 116 24 156/86 (109) 100 09/22/24 11:40 138 24 187/115 (139) 100 09/22/24 11:35 98.8 129 24 198/113 (141) 100 98.8 09/22/24 11:31 103 20 184/114 (137) 100 09/22/24 11:28 121 232/124 09/22/24 11:25 121 18 232/124 (160) 100 09/22/24 11:18 211/125 09/22/24 11:15 211/125 09/22/24 11:11 121 18 211/125 (153) 100 09/22/24 11:10 Room Air* 0 21 09/22/24 09:39 98.2 86 18 177/90 (119) 96 98.2 Lab Test 09/22/24 11:53 09/22/24 11:42 09/22/24 11:23 09/22/24 09:44 Range/Units Blood Gas Specimen Type Arterial Blood Gas Sample Site Right radial Blood Gas Patient Temperature 37.0 Arterial Blood Date Drawn [id number] Arterial Blood pH 7.491 H 7.350-7.450 Arterial Blood Partial Pressure CO2 24.1 L 32.0-45.0 mmHg Arterial Blood Partial Pressure O2 449.8 *H 83.0-108.0 mmHg Arterial Blood HCO3 18.0 L 21.0-28.0 mmol/L Arterial Blood Oxygen Saturation 99.7 H 94.0-98.0 % Arterial Blood Base Excess -3.8 L -2.0-3.0 mmol/L Arterial Blood Oxyhemoglobin 98.9 H 94.0-98.0 % Arterial Blood Carboxyhemoglobin 0.3 L 0.5-1.5 % Arterial Blood Methemoglobin 0.5 0.0-1.5 % Jeff Test Modified Blood Gas Total Hemoglobin 11.70 L 12.0-16.0 g/dL Blood Gas Set Respiration Rate 24.0 Blood Gas Modality Vent - ac FiO2 % 100.0 Blood Gas Tidal Volume 450.0 Blood Gas PEEP or CPAP 5.0 Blood Gas Critical Value Read Back Yes Blood Gas Notified Whom juliana Conner Blood Gas Notified Time [id number] Blood Gas Notified By Managed Services Consultant rosy albrecht POC Glucose 149 H 119 H 70-106 mg/dl White Blood Count 12.9 H 4.4-10.8 10^3/uL Red Blood Count 4.56 4.0-5.20 10^6/uL Hemoglobin 11.8 L 12.2-16.2 g/dL Hematocrit 37.1 36.0-46.0 % Mean Corpuscular Volume 81.5 80.0-100.0 fL Mean Corpuscular Hemoglobin 25.8 L 28.0-32.0 pg Mean Corpuscular Hemoglobin Concent 31.7 L 32.0-36.0 g/dL Red Cell Distribution Width 20.5 H 11.8-14.3 % Platelet Count 409 140-450 10^3/uL Mean Platelet Volume 8.7 6.9-10.8 fL Neutrophils (%) (Auto) 80.8 H 37.0-80.0 % Lymphocytes (%) (Auto) 12.5 10.0-50.0 % Monocytes (%) (Auto) 6.1 0.0-12.0 % Eosinophils (%) (Auto) 0.0 0.0-7.0 % Basophils (%) (Auto) 0.6 0.0-2.0 % Neutrophils # (Auto) 10.4 H 1.6-8.6 10 ^3/uL Lymphocytes # (Auto) 1.6 0.4-5.4 10 ^3/uL Monocytes # (Auto) 0.8 0-1.3 10 ^3/uL Eosinophils # (Auto) 0 0-0.8 10 ^3/uL Basophils # (Auto) 0.1 0-0.2 10 ^3/uL Nucleated Red Blood Cells 0.1 % Sodium Level 134 L 136-145 mmol/L Potassium Level 3.4 L 3.5-5.1 mmol/L Chloride Level 98 98-107 mmol/L Carbon Dioxide Level 22 20-31 mmol/L Anion Gap 14 5-15 Blood Urea Nitrogen 12 9-23 mg/dL Creatinine 1.20 H 0.550-1.02 mg/dL Glomerular Filtration Rate Calc 60 >90 mL/min BUN/Creatinine Ratio 10.0 10.0-20.0 Serum Glucose 130 H 74-106 mg/dL Calcium Level 10.6 H 8.7-10.4 mg/dL Microbiology Date/Time Source Procedure Growth Status 09/22/24 11:45 Sputum Gram Stain - Final Complete 09/22/24 11:45 Respiratory Culture - Final Haemophilus parainfluenzae III Complete EXAM: CT HEAD WITHOUT CONTRAST INDICATION: severed headache, neck pain TECHNIQUE: CT of the head without intravenous contrast. Radiation Dose : 1. Head: CT Dose: CTDI volume is 58.43 mGy. Dose-length product is 1151.44 mGy*cm The dose indicators for CT are the volume Computed Tomography (CT) Dose Index (CTDIvol) and the Dose Length Product (DLP), and are measured in units of mGy and mGy-cm, respectively. These indicators are not patient dose, but values generated from the CT scanner acquisition factors. The report includes radiation exposure data for exposures received during this examination. COMPARISON: None FINDINGS: Acute intraparenchymal hemorrhage is present centered in the left temporal lobe. There is surrounding edema and approximately 0.5 cm of rightward midline shift. There is partial effacement of the left lateral ventricle and the temporal horn of the left lateral ventricle. Possible small volume intraventricular hemorrhage in the posterior horn of the left lateral ventricle. The ventricles, sulci and cisterns are age appropriate.The ocombs-white differentiation is intact. The visualized paranasal sinuses and mastoid air cells are clear. The surrounding soft tissues and osseous structures are unremarkable. IMPRESSION: Acute intraparenchymal hemorrhage is present centered in the left temporal lobe. There is surrounding edema and approximately 0.5 cm of rightward midline shift. There is partial effacement of the left lateral ventricle and the temporal horn of the left lateral ventricle. Possible small volume intraventricular hemorrhage in the posterior horn of the left lateral ventricle. Critical Result: Intracranial hemorrhage Findings discussed with Dr. Keen, at 09/22/2024 11:03 AM, and acknowledged receipt and understanding of the findings. Radiation optimization: All CT scans at this facility use at least one of these dose optimization techniques: automated exposure control mA and/or kV adjustment per patient size (includes targeted exams where dose is matched to clinical indication) or iterative reconstruction. ATED BY: PARISH CLAROS MD DICTATED DATE/TIME: 09/22/24 1104 Time of 1ST Reevaluation: 09:56 Reevaluation 1ST: Unchanged Patient Education/Counseling: Diagnosis, Treatment, Prognosis Family Education/Counseling: No Family Present Departure 1 Departure Time of Disposition: 05:14 (Patient presenting with intraparenchymal hemorrhage in her GCS continue to decline while here. Patient was emergently intubated central line placed. Patient was helicoptered to [place] for emergent intervention.) Impression: Primary Impression: Intraparenchymal hemorrhage of brain Additional Impression: Altered mental status Qualified Codes: R41.0 - Disorientation, unspecified Disposition: 02 SHORT TERM HOSPITAL Condition: Critical Critical Care Note Critical Care Time?: Yes Critical care comment: Intraparenchymal hemorrhage Authorized and Performed by: Jaun Keen MD Total critical care time: Approximately 49 minutes Due to a high probability of clinically significant, life threatening deterioration, the patient required my highest level of preparedness to intervene emergently and I personally spent this critical care time directly and personally managing the patient. This critical care time included obtaining a history; examining the patient; pulse oximetry; ordering and review of studies; arranging urgent treatment with development of a management plan; evaluation of patient's response to treatment; frequent reassessment; and, discussions with other providers. This critical care time was performed to assess and manage the high probability of imminent, life-threatening deterioration that could result in multi-organ failure. It was exclusive of separately billable procedures and treating other patients and teaching time. Please see my other sections and the rest of the note for further information on patient assessment and treatment. Stability Stability form required: No I personally scribed for JAUN KEEN MD ([facility]) on 09/22/24 at 10:01. Electronically submitted by Lexy Jenkins ([facility]). I personally scribed for JAUN KEEN MD ([facility]) on 09/22/24 at 11:31. Electronically submitted by Lexy Jenkins ([facility]). I personally scribed for JAUN KEEN MD ([facility]) on 09/22/24 at 11:33. Electronically submitted by Lexy Jenkins ([facility]). JAUN KEEN MD Sep 22, 2024 10:01
--- NOTE | 2024-09-22 11:06 | DVH ---
EXAM: CT HEAD WITHOUT CONTRAST INDICATION: severed headache, neck pain TECHNIQUE: CT of the head without intravenous contrast. Radiation Dose : 1. Head: CT Dose: CTDI volume is 58.43 mGy. Dose-length product is 1151.44 mGy*cm The dose indicators for CT are the volume Computed Tomography (CT) Dose Index (CTDIvol) and the Dose Length Product (DLP), and are measured in units of mGy and mGy-cm, respectively. These indicators are not patient dose, but values generated from the CT scanner acquisition factors. The report includes radiation exposure data for exposures received during this examination. COMPARISON: None FINDINGS: Acute intraparenchymal hemorrhage is present centered in the left temporal lobe. There is surrounding edema and approximately 0.5 cm of rightward midline shift. There is partial effacement of the left l ateral ventricle and the temporal horn of the left lateral ventricle. Possible small volume intraventricular hemorrhage in the posterior horn of the left lateral ventricle . The ventricles, sulci and cisterns are age appropriate.The coombs-white differentiation is intact. The visualized paranasal sinuses and mastoid air cells are clear. The surrounding soft tissues and osseous structures are unremarkable. IMPRESSION: Acute intraparenchymal hemorrhage is present centered in the left temporal lobe. There is surrounding edema and approximately 0.5 cm of rightward midline shift. There is partial effacement of the left l ateral ventricle and the temporal horn of the left lateral ventricle. Possible small volume intraventricular hemorrhage in the posterior horn of the left lateral ventricle . Critical Result: Intracranial hemorrhage Findings discussed with Dr. Keen, at 09/22/2024 11:03 AM, and acknowledged receipt and understandin g of the findings. Radiation optimization: All CT scans at this facility use at least one of these dose optimization srinath hniques: automated exposure control mA and/or kV adjustment per patient size (includes targeted exam s where dose is matched to clinical indication) or iterative reconstruction.
[2024-09-22] MEDS: MIDAZOLAM HCL 5 MG/ML-1ML VIAL IV ONE (11:14)
[2024-09-22] MEDS: ROCURONIUM 10MG/ML 10ML VIAL IV ONE ×2 (11:15→11:34)
[2024-09-22] MEDS: MIDAZOLAM DRIP 50 mg/50mL 50 ML IV SCH (11:18)
[2024-09-22] MEDS: levETIRAcetam 1000 mg/100ml 200 ML IV ONE ×2 (11:20→11:33)
[2024-09-22] MEDS: DexAMETHasone SOD PHOS 10MG/1ML VIAL INJ IV ONE (11:26)
[2024-09-22] MEDS: levETIRAcetam 1000 mg/100ml 100 ML IV ONE (11:30)
[2024-09-22] MEDS: DexAMETHasone SOD PHOS 10MG/1ML VIAL INJ ONE (11:31)
[2024-09-22] MEDS: MIDAZOLAM DRIP 50 mg/50mL 50 ML IV ONE (11:33)
[2024-09-22] MEDS: MIDAZOLAM HCL 5 MG/ML-1ML VIAL ONE (11:33)
[2024-09-22 11:52] LABS: Basophils # (auto) 0.1 10 ^3/uL (0-0.2); Basophils % (auto) 0.6 % (0.0-2.0); Eosinophils # (auto) 0 10 ^3/uL (0-0.8); Hematocrit 37.1 % (36.0-46.0); Hemoglobin 11.8 g/dL (12.2-16.2); Lymphocytes # (auto) 1.6 10 ^3/uL (0.4-5.4); Lymphocytes % (auto) 12.5 % (10.0-50.0); Mean Corpuscular Hemoglobin 25.8 pg (28.0-32.0); Mean Corpuscular Hgb Conc. 31.7 g/dL (32.0-36.0); Mean Corpuscular Volume 81.5 fL (80.0-100.0); Monocytes # (auto) 0.8 10 ^3/uL (0-1.3); Monocytes % (auto) 6.1 % (0.0-12.0); Neutrophils # (auto) 10.4 10 ^3/uL (1.6-8.6); Neutrophils % (auto) 80.8 % (37.0-80.0); Nucleated Red Blood Cells % 0.1 %; Platelet Count (auto) 409 10^3/uL (140-450); Red Blood Cells 4.56 10^6/uL (4.0-5.20); Red Cell Distribution Width 20.5 % (11.8-14.3); White Blood Cell 12.9 10^3/uL (4.4-10.8)
[2024-09-22 12:03] LABS: Chloride 98 mmol/L (98-107)
[2024-09-22 12:04] LABS: Anion Gap 14 (5-15); Carbon Dioxide 22 mmol/L (20-31)
[2024-09-22 12:05] VITALS: TEMP 98.8
[2024-09-22 12:05] LABS: Base Excess -3.8 mmol/L (-2.0-3.0)
[2024-09-22 12:09] LABS: Blood Urea Nitrogen 12 mg/dL (9-23); Glucose 130 mg/dL (74-106)
[2024-09-22 12:10] LABS: Calcium 10.6 mg/dL (8.7-10.4); Potassium 3.4 mmol/L (3.5-5.1); Sodium 134 mmol/L (136-145)
[2024-09-22 12:15] VITALS: BP 156/86; PULSE 113; RESP 24; O2SAT 100
== END 2024-09-22 13:14 | disposition short-term general hospital (02) ==
LOC: MERGE 09:29 → EDBD 09:29 → ER 09:29
DX: I61.8 Other nontraumatic intracerebral hemorrhage (principal); R41.82 Altered mental status, unspecified; I10 Essential (primary) hypertension; E11.9 Type 2 diabetes mellitus without complications; E78.5 Hyperlipidemia, unspecified
CPT/HCPCS: 31500; 36415; 36556; 36600; 70450; 80048; 82805; 82947; 85025; 87070; 87077; 87205; 96365; 96375; 99291; J1100; J1953; J2250; 82962